=== PATIENT | male | born 1940 | race African-American/Black ===

== ENCOUNTER 2017-11-11 15:26 | Inpatient (IN) | payer MEDICARE, OTHER ==
[~2017-11-11 15:26] MED LIST: EPINEPHrine 0.1 MG/ML SYG
[2017-11-11] MEDS: SOD CHLORIDE 0.9% 1,000 ML IV ×5 (15:44→23:16)
[2017-11-11] MEDS: ASPIRIN 300 MG SUPP PR (15:45)
[2017-11-11 16:13] LABS: WHITE BLOOD COUNT 21.5 10^3/ul (4.8-10.8)
[2017-11-11 16:13] LABS: ABNORMAL IP MESSAGE 1; MEAN CORPUSCULAR HGB CONC 24.5 g/dl (32.0-37.0); MEAN PLATELET VOLUME 12.1 fl (7.4-10.4); PLATELET COUNT 448 10^3/UL (140-415); POSITIVE DIFF @See below; RED CELL DISTRIBUTION WIDTH 28.6 % (11.5-14.5)
[2017-11-11 16:19] LABS: AADO2 Arterial 613.9 mmHg (7.0-24.0); Allen Test ACCEPTAB; Arterial Blood Gas Oxygen Sat 59.7 mmHG (95.0-100.0); Arterial COHb 0.9 % (0.0-3.0); Arterial Fraction of Oxyhgb 58.9 % (93.0-99.0); Arterial MetHb 0.4 % (0.0-1.5); Arterial Total Hemglobin 3.2 g/dl (12.0-18.0); Arterial pCO2 57.5 mmhg (35-45); MODE VENT - AC; RED BLOOD COUNT 1.86 10^6/ul (4.70-6.10); Sample Type BLMV; Site Right Radial
[2017-11-11 16:21] LABS: ANION GAP 23 (8-16); BLOOD UREA NITROGEN 10 mg/dl (7-20); CALCIUM 8.7 mg/dl (8.4-10.2); CARBON DIOXIDE 27 mmol/L (21-31); CHLORIDE 97 mmol/L (97-110); CREATINE KINASE 267 IU/L (23-200); GLUCOSE 152 mg/dl (70-220); POTASSIUM 4.4 mmol/L (3.5-5.1); SODIUM 143 mmol/L (135-144)
[2017-11-11 16:22] LABS: ADD MAN DIFF? YES; HEMATOCRIT 14.7 % (42.0-52.0); HEMOGLOBIN 3.6 g/dl (14.0-18.0); MEAN CORPUSCULAR HEMOGLOBIN 19.4 pg (29.0-33.0)
[2017-11-11 16:31] LABS: B-TYPE NATRIURETIC PEPTIDE 1970 PG/ML (0-450)
[2017-11-11 16:32] LABS: CK INDEX 3.1
[2017-11-11 16:34] LABS: IMMEDIATE SPIN CROSSMATCH 1 4
[2017-11-11 16:45] LABS: CK-MB 8.38 ng/ml (0.0-2.4)
[2017-11-11] MEDS: NORepinephrine 8MG/250 ML (PMX 250 ML IV (16:51)
[2017-11-11 17:47] LABS: ANISOCYTOSIS 1+ (0-0); BAND NEUTROPHILS #M 0.2 10^3/ul (0.0-0.6); BAND NEUTROPHILS % (M) 1 % (0-4); ERYTHROBLAST% (NRBC) (M) 2 % (0-0); HYPOCHROMASIA 3+ (0-0); LYMPHOCYTES #M 4.3 10^3/ul (0.8-2.9); LYMPHOCYTES % (M) 20 % (15-51); MICROCYTOSIS 1+ (0-0); MONOCYTES % (M) 5 % (0-11); MYELOCYTES #M 0.2 10^3/ul (0.0-0.0); MYELOCYTES % (M) 1 % (0-0); OVALOCYTES 1+ (0-0); PLATELET ESTIMATE NORMAL; POIKILOCYTOSIS 1+ (0-0); POLYCHROMASIA 1+ (0-0); SEG NEUT #M 15.7 10^3/ul (1.7-7.5); SEGMENTED NEUTROPHILS (M) % 73 % (39-77)
[2017-11-11] MEDS: VANCOMYCIN 1 GM (PMX) 250 ML IVPB (19:00)
[2017-11-11] MEDS ORDERED: ALBUTEROL/IPRATROPIUM (NEB) 3 ML AMP NEB (19:00)
[2017-11-11] MEDS ORDERED: VANCOMYCIN IV PER PHARMACY XX (19:00)
[2017-11-11] MEDS ORDERED: ALBUTEROL/IPRATROPIUM (NEB) 3 ML AMP HHN ×2 (19:00→20:00)
[2017-11-11] MEDS ORDERED: HYDROCODONE/APAP (5/325) TAB PO (19:00)
[2017-11-11] MEDS ORDERED: ONDANSETRON 4 MG INJ IV (19:00)
[2017-11-11] MEDS: FAMOTIDINE 20 MG INJ IV (19:06)
[2017-11-11] MEDS: SOD CHLORIDE 0.9% 250 ML IV* (19:08)
[2017-11-11 19:11] LABS: TOTAL IRON BINDING CAPACITY 407 ug/dl (241-421)
[2017-11-11] MEDS: SODIUM CHLORIDE 0.9% 500 ML BAG IV* (19:12)
[2017-11-11 19:29] LABS: IRON < 10 ug/dl (35-150)
[2017-11-11] MEDS: MIDAZOLAM (DRIP) 50 mg/50 mL 50 ML IV (19:47)
[2017-11-11] MEDS: VECURONIUM 100 MG in DEXTROSE 5% 100 ML IV (19:49)
[2017-11-11 19:50] LABS: AMMONIA 13 umol/l (9-30)
[2017-11-11] MEDS: FENTAnyl 50 MCG/ML VIAL IV (19:53)
[2017-11-11 19:57] LABS: LACTIC ACID 3.4 mmol/L (0.5-2.0)
[2017-11-11 20:28] LABS: ALANINE AMINOTRANSFERASE 39 IU/L (13-69); ALBUMIN 3.2 g/dl (3.3-4.9); ALBUMIN/GLOBULIN RATIO 1.18; ALKALINE PHOSPHATASE 64 IU/L (42-121); ANION GAP 17 (8-16); ASPARTATE AMINO TRANSFERASE 63 IU/L (15-46); BILIRUBIN,INDIRECT 0.4 mg/dl (0-1.1); BILIRUBIN,TOTAL 0.4 mg/dl (0.2-1.3); BLOOD UREA NITROGEN 16 mg/dl (7-20); CARBON DIOXIDE 30 mmol/L (21-31); CHLORIDE 98 mmol/L (97-110); CREATININE 1.36 mg/dl (0.61-1.24); GLUCOSE 178 mg/dl (70-220); MAGNESIUM 2.1 mg/dl (1.7-2.5); PHOSPHORUS 4.7 mg/dl (2.5-4.9); POTASSIUM 4.2 mmol/L (3.5-5.1); SODIUM 141 mmol/L (135-144); TOTAL PROTEIN 5.9 g/dl (6.1-8.1)
[2017-11-11 20:28] LABS: LACTIC ACID 3.1 mmol/L (0.5-2.0)
[2017-11-11 20:32] LABS: AADO2 Arterial 439.4 mmHg (7.0-24.0); Arterial Base Excess 2.1 mmol/L (-3.0-3); Arterial Blood Gas Oxygen Sat 99.6 mmHG (95.0-100.0); Arterial COHb 0.6 % (0.0-3.0); Arterial Fraction of Oxyhgb 98.7 % (93.0-99.0); Arterial HCO3 27.2 mmol/L (22.0-26.0); Arterial MetHb 0.3 % (0.0-1.5); Arterial Total Hemglobin 6.9 g/dl (12.0-18.0); Arterial pCO2 45.3 mmhg (35-45); Blood Gas Mean Airway Pressure 11; MODE VENT - AC; Site LB
[2017-11-11] MEDS: CEFEPIME 2GM/50 ML (PMX) 50 ML IVPB (20:43)
[2017-11-11 20:49] LABS: B-TYPE NATRIURETIC PEPTIDE 2390 PG/ML (0-450)
[2017-11-11 20:57] LABS: ADD MAN DIFF? NO
[2017-11-11] MEDS: VANCOMYCIN 1.75 GM in DEXTROSE 5% 500 ML IVPB (21:00)
[2017-11-11 21:02] LABS: WHITE BLOOD COUNT 26.5 10^3/ul (4.8-10.8)
[2017-11-11 21:02] LABS: ABNORMAL IP MESSAGE 1; HEMATOCRIT 20.7 % (42.0-52.0); MEAN CORPUSCULAR HEMOGLOBIN 23.3 pg (29.0-33.0); MEAN CORPUSCULAR VOLUME 80.5 fl (82.0-101.0); MEAN PLATELET VOLUME 11.3 fl (7.4-10.4); NUCLEATED RED BLOOD CELLS% 1.3 /100WBC (0.0-0.0); PLATELET COUNT 430 10^3/UL (140-415); POSITIVE DIFF @See below; RED BLOOD COUNT 2.57 10^6/ul (4.70-6.10); RED CELL DISTRIBUTION WIDTH 23.9 % (11.5-14.5)
[2017-11-11 21:21] LABS: INR 1.12; PROTIME 14.6 Sec (11.9-14.9); PT RATIO 1.1
[2017-11-11 21:22] LABS: PARTIAL THROMBOPLASTIN TIME 33.2 Sec (25.0-35.0)
[2017-11-11 21:52] LABS: ANISOCYTOSIS 1+ (0-0); BAND NEUTROPHILS #M 0.7 10^3/ul (0.0-0.6); BAND NEUTROPHILS % (M) 3 % (0-4); GIANT THROMBO% (M) 2 % (0-0); HYPOCHROMASIA 3+ (0-0); LYMPHOCYTES #M 0.5 10^3/ul (0.8-2.9); LYMPHOCYTES % (M) 2 % (15-51); MONOCYTE #M 1.5 10^3/ul (0.3-0.9); MONOCYTES % (M) 6 % (0-11); OVALOCYTES 1+ (0-0); PLATELET ESTIMATE NORMAL; POIKILOCYTOSIS 1+ (0-0); POLYCHROMASIA 1+ (0-0); SEG NEUT #M 23.8 10^3/ul (1.7-7.5); SEGMENTED NEUTROPHILS (M) % 89 % (39-77)
[2017-11-11] MEDS: PANTOPRAZOLE IV 80 MG in SOD CHLORIDE 0.9% 100 ML IVPB (22:51)
[2017-11-11] MEDS: PANTOPRAZOLE IV 80 MG in SOD CHLORIDE 0.9% 100 ML IV (23:15)
[2017-11-12] MEDS ORDERED: DEXTROSE 50% 50 ML SYRINGE IV ×2
[2017-11-12] MEDS: SOD CHLORIDE 0.9% 1,000 ML IV ×5 (00:05→20:04)
[2017-11-12 00:31] LABS: AADO2 Arterial 319.7 mmHg (7.0-24.0); ADD MAN DIFF? NO; Allen Test ACCEPTAB; Arterial Base Excess 1.5 mmol/L (-3.0-3); Arterial Blood Gas Oxygen Sat 94.4 mmHG (95.0-100.0); Arterial COHb 0.4 % (0.0-3.0); Arterial Fraction of Oxyhgb 93.7 % (93.0-99.0); Arterial HCO3 27.6 mmol/L (22.0-26.0); Arterial MetHb 0.3 % (0.0-1.5); Arterial Total Hemglobin 6.7 g/dl (12.0-18.0); Arterial pCO2 45.5 mmhg (35-45); Blood Gas Low PEEP Setting 0 cmH2O; MODE VENT - AC; Site Right Radial; Temperature 33.6 C
[2017-11-12 00:38] LABS: ABNORMAL IP MESSAGE 1; BASOPHILS % 0.1 % (0.0-2.0); HEMATOCRIT 19.9 % (42.0-52.0); LYMPHOCYTES # 0.4 10^3/ul (0.8-2.9); LYMPHOCYTES % 1.7 % (15.0-51.0); MEAN CORPUSCULAR HEMOGLOBIN 23.6 pg (29.0-33.0); MEAN CORPUSCULAR HGB CONC 29.1 g/dl (32.0-37.0); MEAN CORPUSCULAR VOLUME 80.9 fl (82.0-101.0); MEAN PLATELET VOLUME 10.8 fl (7.4-10.4); MONOCYTE # 1.5 10^3/ul (0.3-0.9); MONOCYTES % 6.7 % (0.0-11.0); NEUTROPHIL # 19.8 10^3/ul (1.6-7.5); NEUTROPHILS % 90.9 % (39.0-77.0); NUCLEATED RED BLOOD CELLS # 0.1 10^3/ul (0.0-0.0); NUCLEATED RED BLOOD CELLS% 0.3 /100WBC (0.0-0.0); PLATELET COUNT 336 10^3/UL (140-415); POSITIVE DIFF @See below; RED BLOOD COUNT 2.46 10^6/ul (4.70-6.10); RED CELL DISTRIBUTION WIDTH 24.1 % (11.5-14.5)
[2017-11-12 00:38] LABS: WHITE BLOOD COUNT 21.8 10^3/ul (4.8-10.8)
[2017-11-12] MEDS: PIPER-TAZO 3.375 GM IV (PMX) 50 ML IVPB ×5 (00:54→23:14)
[2017-11-12 00:56] LABS: HEMOGLOBIN 5.8 g/dl (14.0-18.0); INR 1.21; PARTIAL THROMBOPLASTIN TIME 37.3 Sec (25.0-35.0); PROTIME 15.5 Sec (11.9-14.9); PT RATIO 1.2
[2017-11-12 01:03] LABS: ALANINE AMINOTRANSFERASE 46 IU/L (13-69); ALBUMIN/GLOBULIN RATIO 1.25; ALKALINE PHOSPHATASE 52 IU/L (42-121); AMYLASE 207 U/L (11-123); ANION GAP 12 (8-16); ASPARTATE AMINO TRANSFERASE 67 IU/L (15-46); BILIRUBIN,INDIRECT 0.4 mg/dl (0-1.1); BILIRUBIN,TOTAL 0.4 mg/dl (0.2-1.3); BLOOD UREA NITROGEN 16 mg/dl (7-20); CALCIUM 7.2 mg/dl (8.4-10.2); CARBON DIOXIDE 30 mmol/L (21-31); CHLORIDE 103 mmol/L (97-110); CREATINE KINASE 1128 IU/L (23-200); CREATININE 1.39 mg/dl (0.61-1.24); GLUCOSE 175 mg/dl (70-220); LIPASE 29 U/L (23-300); MAGNESIUM 1.9 mg/dl (1.7-2.5); PHOSPHORUS 3.5 mg/dl (2.5-4.9); SODIUM 141 mmol/L (135-144); TOTAL PROTEIN 5.4 g/dl (6.1-8.1)
[2017-11-12 01:10] LABS: LACTIC ACID 2.5 mmol/L (0.5-2.0)
[2017-11-12 01:13] LABS: CK INDEX 1.8
[2017-11-12] MEDS: ALBUTEROL/IPRATROPIUM (NEB) 3 ML AMP NEB ×2 (01:55→05:26)
[2017-11-12] MEDS: ACCU-CHEK XX ×24 (02:00→22:59)
[2017-11-12] MEDS: INSULIN HUMAN REGULAR 100 UNIT in SOD CHLORIDE 0.9% 99 ML IV (02:13)
[2017-11-12] MEDS: OCULAR LUBRICANT 3.5 GM OPH OINT BOTH EYES ×4 (02:25→18:02)
[2017-11-12] MEDS: ARTIFICIAL TEARS 15 ML OPH BOTH EYES ×5 (02:25→23:14)
[2017-11-12] MEDS: VECURONIUM 100 MG in DEXTROSE 5% 100 ML IV (04:50)
[2017-11-12] MEDS: PANTOPRAZOLE IV 80 MG in SOD CHLORIDE 0.9% 100 ML IV ×4 (05:00→19:44)
[2017-11-12] MEDS: FENTAnyl (DRIP) 1000 mcg/100mL 100 ML IV (05:51)
[2017-11-12] MEDS ORDERED: PANTOPRAZOLE 40 MG INJ IV (06:00)
[2017-11-12 06:13] LABS: Allen Test ACCEPTAB; Arterial Base Excess 0.3 mmol/L (-3.0-3); Arterial Blood Gas Oxygen Sat 98.2 mmHG (95.0-100.0); Arterial COHb 0 % (0.0-3.0); Arterial Fraction of Oxyhgb 97.9 % (93.0-99.0); Arterial MetHb 0.3 % (0.0-1.5); Arterial Total Hemglobin 9.1 g/dl (12.0-18.0); Arterial pCO2 41.9 mmhg (35-45); Blood Gas Low PEEP Setting 0 cmH2O; MODE VENT - AC; Site Right Radial; Temperature 34.3 C
[2017-11-12 07:18] LABS: ALANINE AMINOTRANSFERASE 45 IU/L (13-69); ALBUMIN 3.3 g/dl (3.3-4.9); ALBUMIN/GLOBULIN RATIO 1.32; ALKALINE PHOSPHATASE 49 IU/L (42-121); AMYLASE 295 U/L (11-123); ANION GAP 14 (8-16); ASPARTATE AMINO TRANSFERASE 86 IU/L (15-46); BILIRUBIN,INDIRECT 0.6 mg/dl (0-1.1); BILIRUBIN,TOTAL 0.6 mg/dl (0.2-1.3); BLOOD UREA NITROGEN 18 mg/dl (7-20); CALCIUM 7.5 mg/dl (8.4-10.2); CARBON DIOXIDE 30 mmol/L (21-31); CHLORIDE 104 mmol/L (97-110); CREATINE KINASE 1330 IU/L (23-200); CREATININE 1.52 mg/dl (0.61-1.24); GLUCOSE 112 mg/dl (70-220); LIPASE 21 U/L (23-300); MAGNESIUM 2.1 mg/dl (1.7-2.5); SODIUM 144 mmol/L (135-144); TOTAL PROTEIN 5.8 g/dl (6.1-8.1)
[2017-11-12 07:19] LABS: INR 1.15; PROTIME 14.9 Sec (11.9-14.9); PT RATIO 1.2
[2017-11-12 07:26] LABS: CK INDEX 1.9
[2017-11-12 07:34] LABS: AMMONIA < 9 umol/l (9-30)
[2017-11-12 07:35] LABS: LACTIC ACID 2.7 mmol/L (0.5-2.0)
[2017-11-12 07:37] LABS: CHOL/HDL RATIO 1.9 RATIO; CHOLESTEROL 72 mg/dl (100-200); CREATINE KINASE 1395 IU/L (23-200); HDL CHOLESTEROL 37 mg/dl (31-75); LDL CHOLESTEROL,CALCULATED 22 mg/dl; TRIGLYCERIDES 67 mg/dl (0-149)
[2017-11-12 07:37] LABS: MAGNESIUM 2.1 mg/dl (1.7-2.5)
[2017-11-12 07:55] LABS: FREE THYROXINE INDEX (Calc) 2.06 ug/ml (0.65-3.89); T3 UPTAKE 40.4 % (23.5-40.5); T4 (THYROXINE) 5.1 ug/dl (5.5-11.0)
[2017-11-12 08:09] LABS: THYROID STIMULATING HORMONE 0.696 MIU/L (0.465-4.680)
[2017-11-12 08:29] LABS: D-DIMER 4763.74 ng/ml (<460)
[2017-11-12] MEDS: IPRATROPIUM (HFA) 12.9 GM INHALER INH ×3 (08:48→19:32)
[2017-11-12] MEDS: ALBUTEROL HFA 8 GM INHALER INH ×3 (08:49→19:32)
[2017-11-12] MEDS: VANCOMYCIN 1.25 GM in SODIUM CHLORIDE 0.45 % 250 ML IVPB (09:43)
[2017-11-12 09:48] LABS: ABNORMAL IP MESSAGE 1; HEMATOCRIT 28.2 % (42.0-52.0); HEMOGLOBIN 8.5 g/dl (14.0-18.0); MEAN CORPUSCULAR HEMOGLOBIN 24.9 pg (29.0-33.0); MEAN CORPUSCULAR HGB CONC 30.1 g/dl (32.0-37.0); MEAN CORPUSCULAR VOLUME 82.5 fl (82.0-101.0); MEAN PLATELET VOLUME 11.5 fl (7.4-10.4); NUCLEATED RED BLOOD CELLS% 0.3 /100WBC (0.0-0.0); PLATELET COUNT 368 10^3/UL (140-415); POSITIVE DIFF @See below; RED BLOOD COUNT 3.42 10^6/ul (4.70-6.10); RED CELL DISTRIBUTION WIDTH 21.2 % (11.5-14.5)
[2017-11-12 09:48] LABS: HEMOGLOBIN A1C 5.3 % (0-5.9); WHITE BLOOD COUNT 21.9 10^3/ul (4.8-10.8)
[2017-11-12 09:54] LABS: ADD MAN DIFF? YES
[2017-11-12 10:58] LABS: ANISOCYTOSIS 1+ (0-0); BAND NEUTROPHILS #M 0.4 10^3/ul (0.0-0.6); BAND NEUTROPHILS % (M) 2 % (0-4); GIANT THROMBO% (M) 2 % (0-0); HYPOCHROMASIA 1+ (0-0); LYMPHOCYTES #M 0.6 10^3/ul (0.8-2.9); LYMPHOCYTES % (M) 3 % (15-51); MICROCYTOSIS 1+ (0-0); PLATELET ESTIMATE NORMAL; POIKILOCYTOSIS 1+ (0-0); POLYCHROMASIA 3+ (0-0); SEG NEUT #M 20.9 10^3/ul (1.7-7.5); SEGMENTED NEUTROPHILS (M) % 95 % (39-77)
[2017-11-12 12:46] LABS: AADO2 Arterial 325.6 mmHg (7.0-24.0); Allen Test ACCEPTAB; Arterial Base Excess 0.6 mmol/L (-3.0-3); Arterial Blood Gas Oxygen Sat 96.5 mmHG (95.0-100.0); Arterial COHb 0.3 % (0.0-3.0); Arterial Fraction of Oxyhgb 95.9 % (93.0-99.0); Arterial HCO3 26.1 mmol/L (22.0-26.0); Arterial MetHb 0.3 % (0.0-1.5); Arterial Total Hemglobin 9.6 g/dl (12.0-18.0); Arterial pCO2 37.7 mmhg (35-45); MODE VENT - AC; Site Right Radial; Temperature 32.5 C
[2017-11-12 12:56] LABS: WHITE BLOOD COUNT 21.4 10^3/ul (4.8-10.8)
[2017-11-12 12:56] LABS: ABNORMAL IP MESSAGE 1; HEMATOCRIT 27.4 % (42.0-52.0); HEMOGLOBIN 8.6 g/dl (14.0-18.0); MEAN CORPUSCULAR HEMOGLOBIN 25.2 pg (29.0-33.0); MEAN CORPUSCULAR HGB CONC 31.4 g/dl (32.0-37.0); MEAN CORPUSCULAR VOLUME 80.4 fl (82.0-101.0); MEAN PLATELET VOLUME 11.1 fl (7.4-10.4); NUCLEATED RED BLOOD CELLS% 0.1 /100WBC (0.0-0.0); PLATELET COUNT 355 10^3/UL (140-415); POSITIVE DIFF @See below; RED BLOOD COUNT 3.41 10^6/ul (4.70-6.10); RED CELL DISTRIBUTION WIDTH 21.2 % (11.5-14.5)
[2017-11-12 13:08] LABS: ADD MAN DIFF? YES
[2017-11-12 13:13] LABS: INR 1.11; PROTIME 14.5 Sec (11.9-14.9); PT RATIO 1.1
[2017-11-12 13:14] LABS: PARTIAL THROMBOPLASTIN TIME 40.7 Sec (25.0-35.0)
[2017-11-12 13:17] LABS: ALANINE AMINOTRANSFERASE 48 IU/L (13-69); ALBUMIN 3.2 g/dl (3.3-4.9); ALBUMIN/GLOBULIN RATIO 1.28; ALKALINE PHOSPHATASE 57 IU/L (42-121); AMYLASE 416 U/L (11-123); ANION GAP 12 (8-16); ASPARTATE AMINO TRANSFERASE 102 IU/L (15-46); BILIRUBIN,INDIRECT 0.5 mg/dl (0-1.1); BILIRUBIN,TOTAL 0.5 mg/dl (0.2-1.3); BLOOD UREA NITROGEN 19 mg/dl (7-20); CALCIUM 7.2 mg/dl (8.4-10.2); CARBON DIOXIDE 28 mmol/L (21-31); CHLORIDE 104 mmol/L (97-110); CREATINE KINASE 1297 IU/L (23-200); CREATININE 1.53 mg/dl (0.61-1.24); GLUCOSE 113 mg/dl (70-220); LIPASE 23 U/L (23-300); PHOSPHORUS 2.9 mg/dl (2.5-4.9); POTASSIUM 3.8 mmol/L (3.5-5.1); SODIUM 140 mmol/L (135-144); TOTAL PROTEIN 5.7 g/dl (6.1-8.1)
[2017-11-12 13:18] LABS: LACTIC ACID 2.4 mmol/L (0.5-2.0)
[2017-11-12 13:35] LABS: TROPONIN-I 0.718 ng/ml (0.00-0.12)
[2017-11-12 13:36] LABS: D-DIMER 3908.81 ng/ml (<460)
[2017-11-12 13:43] LABS: ANISOCYTOSIS 3+ (0-0); BAND NEUTROPHILS #M 1.7 10^3/ul (0.0-0.6); BAND NEUTROPHILS % (M) 8 % (0-4); GIANT THROMBO% (M) 1 % (0-0); HYPOCHROMASIA 2+ (0-0); MICROCYTOSIS 2+ (0-0); MONOCYTE #M 0.2 10^3/ul (0.3-0.9); MONOCYTES % (M) 1 % (0-11); PLATELET ESTIMATE NORMAL; POIKILOCYTOSIS 1+ (0-0); POLYCHROMASIA 3+ (0-0); SEG NEUT #M 19.8 10^3/ul (1.7-7.5); SEGMENTED NEUTROPHILS (M) % 91 % (39-77)
[2017-11-12] MEDS: MIDAZOLAM (DRIP) 50 mg/50 mL 50 ML IV (13:49)
[2017-11-12] MEDS: POTASSIUM CHLORIDE 50 ML IVPB (13:55)
[2017-11-12 17:52] LABS: ABNORMAL IP MESSAGE 1; HEMATOCRIT 27.1 % (42.0-52.0); HEMOGLOBIN 8.5 g/dl (14.0-18.0); MEAN CORPUSCULAR HEMOGLOBIN 25.1 pg (29.0-33.0); MEAN CORPUSCULAR HGB CONC 31.4 g/dl (32.0-37.0); MEAN CORPUSCULAR VOLUME 80.2 fl (82.0-101.0); MEAN PLATELET VOLUME 10.6 fl (7.4-10.4); NUCLEATED RED BLOOD CELLS% 0.2 /100WBC (0.0-0.0); PLATELET COUNT 325 10^3/UL (140-415); POSITIVE DIFF @See below; RED BLOOD COUNT 3.38 10^6/ul (4.70-6.10); RED CELL DISTRIBUTION WIDTH 21.2 % (11.5-14.5)
[2017-11-12 17:52] LABS: WHITE BLOOD COUNT 22.4 10^3/ul (4.8-10.8)
[2017-11-12 18:10] LABS: ALANINE AMINOTRANSFERASE 51 IU/L (13-69); ALBUMIN 3.2 g/dl (3.3-4.9); ALBUMIN/GLOBULIN RATIO 1.28; ALKALINE PHOSPHATASE 52 IU/L (42-121); AMYLASE 460 U/L (11-123); ANION GAP 12 (8-16); ASPARTATE AMINO TRANSFERASE 110 IU/L (15-46); BILIRUBIN,INDIRECT 0.6 mg/dl (0-1.1); BILIRUBIN,TOTAL 0.6 mg/dl (0.2-1.3); BLOOD UREA NITROGEN 20 mg/dl (7-20); CALCIUM 7.4 mg/dl (8.4-10.2); CARBON DIOXIDE 29 mmol/L (21-31); CHLORIDE 105 mmol/L (97-110); CREATINE KINASE 1190 IU/L (23-200); CREATININE 1.58 mg/dl (0.61-1.24); GLUCOSE 114 mg/dl (70-220); LIPASE 20 U/L (23-300); PHOSPHORUS 3.4 mg/dl (2.5-4.9); POTASSIUM 3.9 mmol/L (3.5-5.1); SODIUM 142 mmol/L (135-144); TOTAL PROTEIN 5.7 g/dl (6.1-8.1)
[2017-11-12 18:12] LABS: ADD MAN DIFF? YES
[2017-11-12 18:14] LABS: AADO2 Arterial 267.4 mmHg (7.0-24.0); Allen Test ACCEPTAB; Arterial Base Excess -1.1 mmol/L (-3.0-3); Arterial Blood Gas Oxygen Sat 94.7 mmHG (95.0-100.0); Arterial COHb 0.3 % (0.0-3.0); Arterial Fraction of Oxyhgb 94.1 % (93.0-99.0); Arterial HCO3 24.4 mmol/L (22.0-26.0); Arterial MetHb 0.3 % (0.0-1.5); Arterial Total Hemglobin 9.7 g/dl (12.0-18.0); Arterial pCO2 35.8 mmhg (35-45); INR 1.14; MODE VENT - AC; PARTIAL THROMBOPLASTIN TIME 44.1 Sec (25.0-35.0); PROTIME 14.8 Sec (11.9-14.9); PT RATIO 1.2; Site Right Radial
[2017-11-12 18:17] LABS: D-DIMER 3140.16 ng/ml (<460)
[2017-11-12 18:21] LABS: CK INDEX 2.1
[2017-11-12 18:31] LABS: TROPONIN-I 0.675 ng/ml (0.00-0.12)
[2017-11-12 19:09] LABS: ANISOCYTOSIS 2+ (0-0); BAND NEUTROPHILS #M 2.2 10^3/ul (0.0-0.6); BAND NEUTROPHILS % (M) 10 % (0-4); GIANT THROMBO% (M) 1 % (0-0); HYPOCHROMASIA 2+ (0-0); LYMPHOCYTES #M 0.2 10^3/ul (0.8-2.9); LYMPHOCYTES % (M) 1 % (15-51); METAMYELOCYTES #M 0.2 10^3/ul (0.0-0.0); METAMYELOCYTES %M 1 % (0-0); MICROCYTOSIS 1+ (0-0); MONOCYTE #M 1.3 10^3/ul (0.3-0.9); MONOCYTES % (M) 6 % (0-11); OVALOCYTES 1+ (0-0); PLATELET ESTIMATE NORMAL; POIKILOCYTOSIS 1+ (0-0); POLYCHROMASIA 3+ (0-0); REACTIVE LYMPHOCYTES #M 0.2 10^3/ul (0.0-0.0); REACTIVE LYMPHOCYTES% (M) 1 % (0-0); SEG NEUT #M 18.6 10^3/ul (1.7-7.5); SEGMENTED NEUTROPHILS (M) % 81 % (39-77); SMUDGE%M 1 % (0-0)
[2017-11-13] MEDS: ACCU-CHEK XX ×23 (00:05→22:00)
[2017-11-13] MEDS: SOD CHLORIDE 0.9% 1,000 ML IV ×3 (00:10→18:24)
[2017-11-13 00:17] LABS: AADO2 Arterial 310.2 mmHg (7.0-24.0); Allen Test ACCEPTAB; Arterial Base Excess -1.2 mmol/L (-3.0-3); Arterial Blood Gas Oxygen Sat 97.2 mmHG (95.0-100.0); Arterial COHb 0.3 % (0.0-3.0); Arterial Fraction of Oxyhgb 96.6 % (93.0-99.0); Arterial HCO3 24.2 mmol/L (22.0-26.0); Arterial MetHb 0.3 % (0.0-1.5); Arterial Total Hemglobin 9.5 g/dl (12.0-18.0); Arterial pCO2 36.6 mmhg (35-45); MODE VENT - AC; Site Right Radial
[2017-11-13 01:08] LABS: WHITE BLOOD COUNT 20.6 10^3/ul (4.8-10.8)
[2017-11-13 01:08] LABS: ABNORMAL IP MESSAGE 1; HEMATOCRIT 25.4 % (42.0-52.0); HEMOGLOBIN 7.8 g/dl (14.0-18.0); MEAN CORPUSCULAR HEMOGLOBIN 24.6 pg (29.0-33.0); MEAN CORPUSCULAR HGB CONC 30.7 g/dl (32.0-37.0); MEAN CORPUSCULAR VOLUME 80.1 fl (82.0-101.0); MEAN PLATELET VOLUME 11.7 fl (7.4-10.4); NUCLEATED RED BLOOD CELLS% 0.1 /100WBC (0.0-0.0); PLATELET COUNT 337 10^3/UL (140-415); POSITIVE DIFF @See below; RED BLOOD COUNT 3.17 10^6/ul (4.70-6.10); RED CELL DISTRIBUTION WIDTH 21.6 % (11.5-14.5)
[2017-11-13 01:20] LABS: ADD MAN DIFF? YES
[2017-11-13 01:27] LABS: INR 1.16; PT RATIO 1.2
[2017-11-13 01:28] LABS: PARTIAL THROMBOPLASTIN TIME 45.6 Sec (25.0-35.0)
[2017-11-13 01:29] LABS: ALANINE AMINOTRANSFERASE 44 IU/L (13-69); ALBUMIN 2.8 g/dl (3.3-4.9); ALBUMIN/GLOBULIN RATIO 1.16; ALKALINE PHOSPHATASE 46 IU/L (42-121); AMYLASE 437 U/L (11-123); ANION GAP 12 (8-16); ASPARTATE AMINO TRANSFERASE 111 IU/L (15-46); BILIRUBIN,INDIRECT 0.5 mg/dl (0-1.1); BILIRUBIN,TOTAL 0.5 mg/dl (0.2-1.3); BLOOD UREA NITROGEN 20 mg/dl (7-20); CALCIUM 7.1 mg/dl (8.4-10.2); CARBON DIOXIDE 28 mmol/L (21-31); CHLORIDE 106 mmol/L (97-110); CREATINE KINASE 915 IU/L (23-200); CREATININE 1.61 mg/dl (0.61-1.24); GLUCOSE 100 mg/dl (70-220); LIPASE 12 U/L (23-300); MAGNESIUM 1.9 mg/dl (1.7-2.5); PHOSPHORUS 3.6 mg/dl (2.5-4.9); POTASSIUM 3.8 mmol/L (3.5-5.1); SODIUM 142 mmol/L (135-144); TOTAL PROTEIN 5.2 g/dl (6.1-8.1)
[2017-11-13 01:30] LABS: LACTIC ACID 1.8 mmol/L (0.5-2.0)
[2017-11-13] MEDS: IPRATROPIUM (HFA) 12.9 GM INHALER INH ×4 (01:34→20:38)
[2017-11-13] MEDS: ALBUTEROL HFA 8 GM INHALER INH ×4 (01:34→20:38)
[2017-11-13 01:40] LABS: CK INDEX 2.3
[2017-11-13 01:48] LABS: ANISOCYTOSIS 2+ (0-0); BAND NEUTROPHILS #M 1.8 10^3/ul (0.0-0.6); BAND NEUTROPHILS % (M) 9 % (0-4); EOSINOPHILS % (M) 1 % (0-7); HYPOCHROMASIA 2+ (0-0); MICROCYTOSIS 2+ (0-0); MONOCYTE #M 0.2 10^3/ul (0.3-0.9); MONOCYTES % (M) 1 % (0-11); PLATELET ESTIMATE NORMAL; POIKILOCYTOSIS 1+ (0-0); POLYCHROMASIA 3+ (0-0); SEG NEUT #M 18.7 10^3/ul (1.7-7.5); SEGMENTED NEUTROPHILS (M) % 89 % (39-77)
[2017-11-13] MEDS: OCULAR LUBRICANT 3.5 GM OPH OINT BOTH EYES ×4 (01:58→19:01)
[2017-11-13] MEDS: FENTAnyl (DRIP) 1000 mcg/100mL 100 ML IV ×2 (02:24→21:39)
[2017-11-13] MEDS: NORepinephrine 8MG/250 ML (PMX 250 ML IV (02:53)
[2017-11-13] MEDS ORDERED: NORepinephrine 8MG/250 ML (PMX 250 ML IV (03:00)
[2017-11-13] MEDS: MIDAZOLAM (DRIP) 50 mg/50 mL 50 ML IV ×2 (03:24→21:39)
[2017-11-13] MEDS: PANTOPRAZOLE IV 80 MG in SOD CHLORIDE 0.9% 100 ML IV ×2 (05:08→19:57)
[2017-11-13] MEDS: ARTIFICIAL TEARS 15 ML OPH BOTH EYES ×4 (05:09→23:39)
[2017-11-13] MEDS: PIPER-TAZO 3.375 GM IV (PMX) 50 ML IVPB ×4 (05:09→23:41)
[2017-11-13] MEDS: VANCOMYCIN 1.5 GM in DEXTROSE 5% 500 ML IVPB (05:40)
[2017-11-13 06:17] LABS: AADO2 Arterial 293.3 mmHg (7.0-24.0); Allen Test ACCEPTAB; Arterial Base Excess -1.1 mmol/L (-3.0-3); Arterial Blood Gas Oxygen Sat 97.9 mmHG (95.0-100.0); Arterial COHb 0.3 % (0.0-3.0); Arterial Fraction of Oxyhgb 97.1 % (93.0-99.0); Arterial HCO3 23.2 mmol/L (22.0-26.0); Arterial MetHb 0.5 % (0.0-1.5); Arterial Total Hemglobin 8.5 g/dl (12.0-18.0); Arterial pCO2 32.6 mmhg (35-45); MODE VENT - AC; Site Right Radial; Temperature 34.2 C
[2017-11-13 06:28] LABS: WHITE BLOOD COUNT 19.9 10^3/ul (4.8-10.8)
[2017-11-13 06:28] LABS: ABNORMAL IP MESSAGE 1; HEMATOCRIT 24.3 % (42.0-52.0); HEMOGLOBIN 7.6 g/dl (14.0-18.0); MEAN CORPUSCULAR HGB CONC 31.3 g/dl (32.0-37.0); MEAN CORPUSCULAR VOLUME 79.9 fl (82.0-101.0); NUCLEATED RED BLOOD CELLS% 0.3 /100WBC (0.0-0.0); PLATELET COUNT 329 10^3/UL (140-415); POSITIVE DIFF @See below; RED BLOOD COUNT 3.04 10^6/ul (4.70-6.10); RED CELL DISTRIBUTION WIDTH 21.8 % (11.5-14.5)
[2017-11-13 06:33] LABS: ADD MAN DIFF? YES
[2017-11-13 06:48] LABS: INR 1.24; PROTIME 15.8 Sec (11.9-14.9); PT RATIO 1.2
[2017-11-13 06:50] LABS: PARTIAL THROMBOPLASTIN TIME 47.6 Sec (25.0-35.0)
[2017-11-13 06:52] LABS: D-DIMER 1513.94 ng/ml (<460)
[2017-11-13 08:42] LABS: LACTIC ACID 1.7 mmol/L (0.5-2.0)
[2017-11-13 09:11] LABS: ALANINE AMINOTRANSFERASE 40 IU/L (13-69); ALBUMIN 2.6 g/dl (3.3-4.9); ALKALINE PHOSPHATASE 45 IU/L (42-121); AMYLASE 403 U/L (11-123); ANION GAP 13 (8-16); ASPARTATE AMINO TRANSFERASE 112 IU/L (15-46); BILIRUBIN,INDIRECT 0.4 mg/dl (0-1.1); BILIRUBIN,TOTAL 0.4 mg/dl (0.2-1.3); BLOOD UREA NITROGEN 20 mg/dl (7-20); CARBON DIOXIDE 25 mmol/L (21-31); CHLORIDE 109 mmol/L (97-110); CREATINE KINASE 778 IU/L (23-200); CREATININE 1.69 mg/dl (0.61-1.24); GLUCOSE 99 mg/dl (70-220); MAGNESIUM 1.8 mg/dl (1.7-2.5); PHOSPHORUS 3.5 mg/dl (2.5-4.9); POTASSIUM 3.7 mmol/L (3.5-5.1); SODIUM 143 mmol/L (135-144); TOTAL PROTEIN 5.2 g/dl (6.1-8.1)
[2017-11-13 09:20] LABS: LIPASE < 10 U/L (23-300)
[2017-11-13 09:31] LABS: CK INDEX 2.3
[2017-11-13 09:33] LABS: ANISOCYTOSIS 2+ (0-0); BAND NEUTROPHILS #M 3.9 10^3/ul (0.0-0.6); BAND NEUTROPHILS % (M) 20 % (0-4); BURR CELLS 1+ (0-0); EOSINOPHILS % (M) 6 % (0-7); ERYTHROBLAST% (NRBC) (M) 1 % (0-0); HYPOCHROMASIA 2+ (0-0); MICROCYTOSIS 2+ (0-0); MONOCYTE #M 0.1 10^3/ul (0.3-0.9); MONOCYTES % (M) 1 % (0-11); PLATELET ESTIMATE NORMAL; POIKILOCYTOSIS 1+ (0-0); SEG NEUT #M 15.3 10^3/ul (1.7-7.5); SEGMENTED NEUTROPHILS (M) % 73 % (39-77)
[2017-11-13 13:15] LABS: AADO2 Arterial 312.1 mmHg (7.0-24.0); Allen Test ACCEPTAB; Arterial Base Excess 0.5 mmol/L (-3.0-3); Arterial Blood Gas Oxygen Sat 94.3 mmHG (95.0-100.0); Arterial COHb 0.3 % (0.0-3.0); Arterial Fraction of Oxyhgb 93.7 % (93.0-99.0); Arterial HCO3 25.9 mmol/L (22.0-26.0); Arterial MetHb 0.3 % (0.0-1.5); Arterial Total Hemglobin 8.9 g/dl (12.0-18.0); Arterial pCO2 43.4 mmhg (35-45); MODE VENT - AC; Site Right Radial; Temperature 35.9 C
[2017-11-13 14:13] LABS: ADD MAN DIFF? NO
[2017-11-13 14:16] LABS: ABNORMAL IP MESSAGE 1; BASOPHILS % 0.1 % (0.0-2.0); HEMOGLOBIN 7.9 g/dl (14.0-18.0); LYMPHOCYTES # 0.3 10^3/ul (0.8-2.9); LYMPHOCYTES % 1.4 % (15.0-51.0); MEAN CORPUSCULAR HEMOGLOBIN 25.2 pg (29.0-33.0); MEAN CORPUSCULAR HGB CONC 31.6 g/dl (32.0-37.0); MEAN CORPUSCULAR VOLUME 79.6 fl (82.0-101.0); MEAN PLATELET VOLUME 10.6 fl (7.4-10.4); MONOCYTE # 1.2 10^3/ul (0.3-0.9); MONOCYTES % 4.8 % (0.0-11.0); NEUTROPHIL # 22.8 10^3/ul (1.6-7.5); NEUTROPHILS % 93.2 % (39.0-77.0); NUCLEATED RED BLOOD CELLS # 0.1 10^3/ul (0.0-0.0); NUCLEATED RED BLOOD CELLS% 0.3 /100WBC (0.0-0.0); PLATELET COUNT 369 10^3/UL (140-415); POSITIVE DIFF @See below; RED BLOOD COUNT 3.14 10^6/ul (4.70-6.10); RED CELL DISTRIBUTION WIDTH 22.5 % (11.5-14.5)
[2017-11-13 14:16] LABS: WHITE BLOOD COUNT 24.4 10^3/ul (4.8-10.8)
[2017-11-13 14:40] LABS: INR 1.35; PROTIME 16.9 Sec (11.9-14.9); PT RATIO 1.3
[2017-11-13 14:42] LABS: PARTIAL THROMBOPLASTIN TIME 47.9 Sec (25.0-35.0)
[2017-11-13 14:44] LABS: D-DIMER 1348.19 ng/ml (<460)
[2017-11-13 14:47] LABS: ALANINE AMINOTRANSFERASE 47 IU/L (13-69); ALBUMIN 2.9 g/dl (3.3-4.9); ALBUMIN/GLOBULIN RATIO 1.11; ALKALINE PHOSPHATASE 49 IU/L (42-121); AMYLASE 330 U/L (11-123); ANION GAP 11 (8-16); ASPARTATE AMINO TRANSFERASE 122 IU/L (15-46); BILIRUBIN,INDIRECT 0.4 mg/dl (0-1.1); BILIRUBIN,TOTAL 0.4 mg/dl (0.2-1.3); BLOOD UREA NITROGEN 21 mg/dl (7-20); CARBON DIOXIDE 25 mmol/L (21-31); CHLORIDE 107 mmol/L (97-110); CREATINE KINASE 592 IU/L (23-200); CREATININE 1.79 mg/dl (0.61-1.24); GLUCOSE 103 mg/dl (70-220); LIPASE 15 U/L (23-300); MAGNESIUM 1.8 mg/dl (1.7-2.5); PHOSPHORUS 3.2 mg/dl (2.5-4.9); POTASSIUM 3.6 mmol/L (3.5-5.1); SODIUM 139 mmol/L (135-144); TOTAL PROTEIN 5.5 g/dl (6.1-8.1)
[2017-11-13 14:54] LABS: LACTIC ACID 1.2 mmol/L (0.5-2.0)
[2017-11-13 15:05] LABS: CK INDEX 2.1
[2017-11-13 15:07] LABS: TROPONIN-I 0.696 ng/ml (0.00-0.12)
[2017-11-13 18:12] LABS: ABNORMAL IP MESSAGE 1; HEMOGLOBIN 8.1 g/dl (14.0-18.0); MEAN CORPUSCULAR HEMOGLOBIN 24.9 pg (29.0-33.0); MEAN CORPUSCULAR HGB CONC 31.2 g/dl (32.0-37.0); MEAN PLATELET VOLUME 11.2 fl (7.4-10.4); NUCLEATED RED BLOOD CELLS% 0.3 /100WBC (0.0-0.0); PLATELET COUNT 399 10^3/UL (140-415); POSITIVE DIFF @See below; RED BLOOD COUNT 3.25 10^6/ul (4.70-6.10); RED CELL DISTRIBUTION WIDTH 22.7 % (11.5-14.5)
[2017-11-13 18:20] LABS: ADD MAN DIFF? YES
[2017-11-13 18:27] LABS: PROTIME 16.4 Sec (11.9-14.9); PT RATIO 1.3
[2017-11-13 18:28] LABS: PARTIAL THROMBOPLASTIN TIME 52.8 Sec (25.0-35.0)
[2017-11-13 18:30] LABS: D-DIMER 2098.25 ng/ml (<460)
[2017-11-13 18:34] LABS: LACTIC ACID 1.2 mmol/L (0.5-2.0)
[2017-11-13 18:37] LABS: ALANINE AMINOTRANSFERASE 46 IU/L (13-69); ALBUMIN 3.2 g/dl (3.3-4.9); ALBUMIN/GLOBULIN RATIO 1.23; ALKALINE PHOSPHATASE 52 IU/L (42-121); AMYLASE 296 U/L (11-123); ANION GAP 12 (8-16); ASPARTATE AMINO TRANSFERASE 121 IU/L (15-46); BILIRUBIN,INDIRECT 0.3 mg/dl (0-1.1); BILIRUBIN,TOTAL 0.3 mg/dl (0.2-1.3); BLOOD UREA NITROGEN 22 mg/dl (7-20); CALCIUM 6.8 mg/dl (8.4-10.2); CARBON DIOXIDE 26 mmol/L (21-31); CHLORIDE 108 mmol/L (97-110); CREATINE KINASE 549 IU/L (23-200); GLUCOSE 103 mg/dl (70-220); LIPASE 14 U/L (23-300); MAGNESIUM 1.8 mg/dl (1.7-2.5); PHOSPHORUS 3.8 mg/dl (2.5-4.9); POTASSIUM 3.9 mmol/L (3.5-5.1); SODIUM 142 mmol/L (135-144); TOTAL PROTEIN 5.8 g/dl (6.1-8.1)
[2017-11-13 18:47] LABS: CK INDEX 1.8
[2017-11-13 18:54] LABS: TROPONIN-I 0.814 ng/ml (0.00-0.12)
[2017-11-13 20:06] LABS: ANISOCYTOSIS 2+ (0-0); BAND NEUTROPHILS #M 0.2 10^3/ul (0.0-0.6); BAND NEUTROPHILS % (M) 1 % (0-4); GIANT THROMBO% (M) 7 % (0-0); HYPOCHROMASIA 1+ (0-0); LYMPHOCYTES #M 0.5 10^3/ul (0.8-2.9); LYMPHOCYTES % (M) 2 % (15-51); MICROCYTOSIS 2+ (0-0); MONOCYTE #M 0.7 10^3/ul (0.3-0.9); MONOCYTES % (M) 3 % (0-11); PLATELET MORPHOLOGY COMMENT @See below; POIKILOCYTOSIS 1+ (0-0); SEG NEUT #M 23.6 10^3/ul (1.7-7.5); SEGMENTED NEUTROPHILS (M) % 94 % (39-77); SMUDGE%M 3 % (0-0)
[2017-11-14] MEDS: OCULAR LUBRICANT 3.5 GM OPH OINT BOTH EYES ×4 (00:16→19:59)
[2017-11-14] MEDS: IPRATROPIUM (HFA) 12.9 GM INHALER INH ×4 (01:15→19:35)
[2017-11-14] MEDS: ALBUTEROL HFA 8 GM INHALER INH ×4 (01:15→19:35)
[2017-11-14] MEDS: PANTOPRAZOLE IV 80 MG in SOD CHLORIDE 0.9% 100 ML IV ×3 (03:39→16:57)
[2017-11-14] MEDS: SOD CHLORIDE 0.9% 1,000 ML IV ×4 (03:39→19:59)
[2017-11-14] MEDS: MIDAZOLAM (DRIP) 50 mg/50 mL 50 ML IV ×2 (04:02→18:41)
[2017-11-14] MEDS: PIPER-TAZO 3.375 GM IV (PMX) 50 ML IVPB ×3 (05:22→17:08)
[2017-11-14] MEDS: ARTIFICIAL TEARS 15 ML OPH BOTH EYES ×3 (05:22→17:09)
[2017-11-14 05:42] LABS: ADD MAN DIFF? NO
[2017-11-14] MEDS: VANCOMYCIN 1.5 GM in DEXTROSE 5% 500 ML IVPB (06:00)
[2017-11-14 06:11] LABS: ABNORMAL IP MESSAGE 1; BASOPHILS % 0.2 % (0.0-2.0); EOSINOPHILS % 0.2 % (0.0-7.0); HEMATOCRIT 25.8 % (42.0-52.0); HEMOGLOBIN 7.8 g/dl (14.0-18.0); LYMPHOCYTES # 0.4 10^3/ul (0.8-2.9); LYMPHOCYTES % 1.7 % (15.0-51.0); MEAN CORPUSCULAR HEMOGLOBIN 24.9 pg (29.0-33.0); MEAN CORPUSCULAR HGB CONC 30.2 g/dl (32.0-37.0); MEAN CORPUSCULAR VOLUME 82.4 fl (82.0-101.0); MEAN PLATELET VOLUME 11.4 fl (7.4-10.4); MONOCYTE # 1.6 10^3/ul (0.3-0.9); MONOCYTES % 6.6 % (0.0-11.0); NEUTROPHIL # 22.3 10^3/ul (1.6-7.5); NEUTROPHILS % 90.4 % (39.0-77.0); NUCLEATED RED BLOOD CELLS # 0.1 10^3/ul (0.0-0.0); NUCLEATED RED BLOOD CELLS% 0.4 /100WBC (0.0-0.0); PLATELET COUNT 423 10^3/UL (140-415); POSITIVE DIFF @See below; RED BLOOD COUNT 3.13 10^6/ul (4.70-6.10); RED CELL DISTRIBUTION WIDTH 23.7 % (11.5-14.5)
[2017-11-14 06:11] LABS: WHITE BLOOD COUNT 24.7 10^3/ul (4.8-10.8)
[2017-11-14 06:20] LABS: ALANINE AMINOTRANSFERASE 41 IU/L (13-69); ALBUMIN 2.6 g/dl (3.3-4.9); ALBUMIN/GLOBULIN RATIO 1.13; ALKALINE PHOSPHATASE 49 IU/L (42-121); ANION GAP 12 (8-16); ASPARTATE AMINO TRANSFERASE 109 IU/L (15-46); BILIRUBIN,INDIRECT 0.3 mg/dl (0-1.1); BILIRUBIN,TOTAL 0.3 mg/dl (0.2-1.3); BLOOD UREA NITROGEN 23 mg/dl (7-20); CALCIUM 7.1 mg/dl (8.4-10.2); CARBON DIOXIDE 27 mmol/L (21-31); CHLORIDE 109 mmol/L (97-110); CREATININE 2.07 mg/dl (0.61-1.24); GLUCOSE 81 mg/dl (70-220); MAGNESIUM 1.8 mg/dl (1.7-2.5); PHOSPHORUS 4.4 mg/dl (2.5-4.9); POTASSIUM 4.3 mmol/L (3.5-5.1); SODIUM 144 mmol/L (135-144); TOTAL PROTEIN 4.9 g/dl (6.1-8.1)
[2017-11-14] MEDS: FENTAnyl (DRIP) 1000 mcg/100mL 100 ML IV ×2 (06:21→22:38)
[2017-11-14 06:42] LABS: AMMONIA 12 umol/l (9-30)
[2017-11-14] MEDS ORDERED: VANCOMYCIN 1.25 GM in SODIUM CHLORIDE 0.45 % 250 ML IVPB (09:00)
[2017-11-14] MEDS: METOPROLOL 25 MG TAB NGT ×2 (09:00→19:59)
[2017-11-14 12:33] LABS: ADD UMIC YES; UR ASCORBIC ACID NEGATIVE (NEGATIVE); UR BACTERIA FEW /HPF (NONE SEEN); UR BILIRUBIN (Dip) NEGATIVE (NEGATIVE); UR BLOOD (Dip) 1+ mg/dL (NEGATIVE); UR CLARITY TURBID (CLEAR); UR COLOR YELLOW (YELLOW); UR GLUCOSE (Dip) NEGATIVE (NEGATIVE); UR GRANULAR CAST FEW /HPF (NONE SEEN); UR KETONES (Dip) NEGATIVE (NEGATIVE); UR LEUKOCYTE ESTERASE (Dip) 1+ Leu/ul (NEGATIVE); UR MUCUS FEW /HPF (NONE SEEN); UR NITRITE (Dip) NEGATIVE (NEGATIVE); UR RBC 17 /HPF (0-5); UR SPECIFIC GRAVITY (Dip) 1.023 (1.003-1.030); UR TOTAL PROTEIN (Dip) NEGATIVE (NEGATIVE); UR UROBILINOGEN (Dip) NEGATIVE (NEGATIVE); UR WBC 38 /HPF (0-5)
[2017-11-14] MEDS: VANCOMYCIN 1 GM 250 ML IVPB (19:59)
[2017-11-15] MEDS: PIPER-TAZO 3.375 GM IV (PMX) 50 ML IVPB ×4 (00:24→21:46)
[2017-11-15] MEDS: ARTIFICIAL TEARS 15 ML OPH BOTH EYES ×5 (00:24→23:17)
[2017-11-15] MEDS: OCULAR LUBRICANT 3.5 GM OPH OINT BOTH EYES ×4 (00:25→20:14)
[2017-11-15] MEDS: IPRATROPIUM (HFA) 12.9 GM INHALER INH ×4 (01:27→20:29)
[2017-11-15] MEDS: ALBUTEROL HFA 8 GM INHALER INH ×4 (01:27→20:29)
[2017-11-15] MEDS: PANTOPRAZOLE IV 80 MG in SOD CHLORIDE 0.9% 100 ML IV (03:52)
[2017-11-15] MEDS: MIDAZOLAM (DRIP) 50 mg/50 mL 50 ML IV (03:53)
[2017-11-15] MEDS: FENTAnyl (DRIP) 1000 mcg/100mL 100 ML IV (04:04)
[2017-11-15 05:49] LABS: ADD MAN DIFF? NO
[2017-11-15 05:58] LABS: WHITE BLOOD COUNT 21.7 10^3/ul (4.8-10.8)
[2017-11-15 05:58] LABS: ABNORMAL IP MESSAGE 1; BASOPHILS % 0.2 % (0.0-2.0); EOSINOPHILS # 0.1 10^3/ul (0.0-0.5); EOSINOPHILS % 0.3 % (0.0-7.0); HEMATOCRIT 24.2 % (42.0-52.0); HEMOGLOBIN 7.1 g/dl (14.0-18.0); LYMPHOCYTES # 0.5 10^3/ul (0.8-2.9); LYMPHOCYTES % 2.1 % (15.0-51.0); MEAN CORPUSCULAR HEMOGLOBIN 24.7 pg (29.0-33.0); MEAN CORPUSCULAR HGB CONC 29.3 g/dl (32.0-37.0); MEAN CORPUSCULAR VOLUME 84.3 fl (82.0-101.0); MEAN PLATELET VOLUME 11.2 fl (7.4-10.4); MONOCYTE # 1.2 10^3/ul (0.3-0.9); MONOCYTES % 5.4 % (0.0-11.0); NEUTROPHIL # 19.8 10^3/ul (1.6-7.5); NEUTROPHILS % 91.2 % (39.0-77.0); NUCLEATED RED BLOOD CELLS # 0.1 10^3/ul (0.0-0.0); NUCLEATED RED BLOOD CELLS% 0.4 /100WBC (0.0-0.0); PLATELET COUNT 463 10^3/UL (140-415); POSITIVE DIFF @See below; RED BLOOD COUNT 2.87 10^6/ul (4.70-6.10); RED CELL DISTRIBUTION WIDTH 23.7 % (11.5-14.5)
[2017-11-15 06:30] LABS: ANION GAP 13 (8-16); BLOOD UREA NITROGEN 26 mg/dl (7-20); CALCIUM 7.3 mg/dl (8.4-10.2); CARBON DIOXIDE 27 mmol/L (21-31); CHLORIDE 111 mmol/L (97-110); CREATININE 2.41 mg/dl (0.61-1.24); GLUCOSE 89 mg/dl (70-220); SODIUM 147 mmol/L (135-144)
[2017-11-15 06:31] LABS: IRON < 10 ug/dl (35-150)
[2017-11-15 06:32] LABS: TOTAL IRON BINDING CAPACITY 273 ug/dl (241-421)
[2017-11-15] MEDS: METOPROLOL 25 MG TAB NGT ×2 (09:00→20:14)
[2017-11-15 09:19] LABS: HEMATOCRIT 24.1 % (42.0-52.0); HEMOGLOBIN 7.2 g/dl (14.0-18.0)
[2017-11-15] MEDS: BUMETANIDE 12 MG in DEXTROSE 5% 72 ML IV ×2 (10:25→23:17)
[2017-11-15 10:56] LABS: IMMEDIATE SPIN CROSSMATCH 1 1
[2017-11-15 16:05] LABS: HEMATOCRIT 29.6 % (42.0-52.0)
[2017-11-15] MEDS ORDERED: EPOETIN 10000 UNITS/ML (NON ESRD/NON ONCOLOGY) SC (17:00)
[2017-11-15] MEDS: EPOETIN 10000 UNITS/ML (NON ESRD/NON ONCOLOGY) SC (17:49)
[2017-11-15] MEDS: SOD FERRIC GLUC COMPLX 125 MG in SOD CHLORIDE 0.9% 100 ML IVPB (18:23)
[2017-11-15] MEDS: PANTOPRAZOLE 40 MG INJ IV (18:23)
[2017-11-16] MEDS: OCULAR LUBRICANT 3.5 GM OPH OINT BOTH EYES ×4 (01:22→19:19)
[2017-11-16] MEDS ORDERED: hydrALAzine 20 MG INJ IV (01:30)
[2017-11-16] MEDS: IPRATROPIUM (HFA) 12.9 GM INHALER INH ×4 (01:56→20:42)
[2017-11-16] MEDS: ALBUTEROL HFA 8 GM INHALER INH ×4 (01:56→20:42)
[2017-11-16] MEDS: PIPER-TAZO 3.375 GM IV (PMX) 50 ML IVPB ×3 (05:09→21:47)
[2017-11-16] MEDS: PANTOPRAZOLE 40 MG INJ IV ×2 (05:10→17:32)
[2017-11-16] MEDS: ARTIFICIAL TEARS 15 ML OPH BOTH EYES ×3 (05:10→17:33)
[2017-11-16] MEDS: LORAZEPAM 2 MG INJ IV (05:32)
[2017-11-16 05:35] LABS: ABNORMAL IP MESSAGE 1; HEMATOCRIT 29.9 % (42.0-52.0); HEMOGLOBIN 9.2 g/dl (14.0-18.0); MEAN CORPUSCULAR HEMOGLOBIN 25.5 pg (29.0-33.0); MEAN CORPUSCULAR HGB CONC 30.8 g/dl (32.0-37.0); MEAN CORPUSCULAR VOLUME 82.8 fl (82.0-101.0); MEAN PLATELET VOLUME 11.6 fl (7.4-10.4); NUCLEATED RED BLOOD CELLS% 0.8 /100WBC (0.0-0.0); PLATELET COUNT 684 10^3/UL (140-415); POSITIVE DIFF @See below; RED BLOOD COUNT 3.61 10^6/ul (4.70-6.10); RED CELL DISTRIBUTION WIDTH 23.2 % (11.5-14.5)
[2017-11-16 05:57] LABS: ADD MAN DIFF? YES
[2017-11-16 06:04] LABS: ANION GAP 17 (8-16); BLOOD UREA NITROGEN 42 mg/dl (7-20); CALCIUM 8.4 mg/dl (8.4-10.2); CARBON DIOXIDE 27 mmol/L (21-31); CHLORIDE 109 mmol/L (97-110); CREATININE 3.42 mg/dl (0.61-1.24); GLUCOSE 141 mg/dl (70-220); SODIUM 149 mmol/L (135-144)
[2017-11-16 06:13] LABS: PHOSPHORUS 4.2 mg/dl (2.5-4.9)
[2017-11-16 06:13] LABS: MAGNESIUM 2.5 mg/dl (1.7-2.5)
[2017-11-16 06:35] LABS: VANCOMYCIN,RANDOM 17.2 ug/ml
[2017-11-16 07:37] LABS: ANISOCYTOSIS 2+ (0-0); BAND NEUTROPHILS #M 0.8 10^3/ul (0.0-0.6); BAND NEUTROPHILS % (M) 3 % (0-4); GIANT THROMBO% (M) 2 % (0-0); HYPOCHROMASIA 1+ (0-0); LYMPHOCYTES #M 0.2 10^3/ul (0.8-2.9); LYMPHOCYTES % (M) 1 % (15-51); MICROCYTOSIS 2+ (0-0); MONOCYTE #M 1.7 10^3/ul (0.3-0.9); MONOCYTES % (M) 6 % (0-11); PLATELET ESTIMATE INCREASED; POIKILOCYTOSIS 1+ (0-0); POLYCHROMASIA 1+ (0-0); SEG NEUT #M 26.3 10^3/ul (1.7-7.5); SEGMENTED NEUTROPHILS (M) % 90 % (39-77); SPHEROCYTES 1+ (0-0); TARGET CELLS 1+ (0-0)
[2017-11-16] MEDS: METOPROLOL 25 MG TAB NGT ×2 (09:05→21:47)
[2017-11-16] MEDS: DEXTROSE 5% 1,000 ML IV ×2 (09:52→19:19)
[2017-11-16] MEDS: SOD FERRIC GLUC COMPLX 125 MG in SOD CHLORIDE 0.9% 100 ML IVPB (10:43)
[2017-11-16] MEDS: VANCOMYCIN 1 GM 250 ML IVPB (21:46)
[2017-11-17] MEDS: ARTIFICIAL TEARS 15 ML OPH BOTH EYES ×4 (00:23→17:43)
[2017-11-17] MEDS: OCULAR LUBRICANT 3.5 GM OPH OINT BOTH EYES ×4 (00:23→19:37)
[2017-11-17] MEDS: IPRATROPIUM (HFA) 12.9 GM INHALER INH ×4 (02:57→19:53)
[2017-11-17] MEDS: ALBUTEROL HFA 8 GM INHALER INH ×4 (02:57→19:53)
[2017-11-17 05:53] LABS: ABNORMAL IP MESSAGE 1; HEMATOCRIT 29.3 % (42.0-52.0); HEMOGLOBIN 8.8 g/dl (14.0-18.0); MEAN CORPUSCULAR HEMOGLOBIN 25.3 pg (29.0-33.0); MEAN CORPUSCULAR VOLUME 84.2 fl (82.0-101.0); MEAN PLATELET VOLUME 11.2 fl (7.4-10.4); NUCLEATED RED BLOOD CELLS% 1.4 /100WBC (0.0-0.0); PLATELET COUNT 709 10^3/UL (140-415); POSITIVE DIFF @See below; RED BLOOD COUNT 3.48 10^6/ul (4.70-6.10); RED CELL DISTRIBUTION WIDTH 23.9 % (11.5-14.5)
[2017-11-17 05:53] LABS: WHITE BLOOD COUNT 31.5 10^3/ul (4.8-10.8)
[2017-11-17] MEDS: PIPER-TAZO 3.375 GM IV (PMX) 50 ML IVPB ×3 (06:05→22:44)
[2017-11-17] MEDS: DEXTROSE 5% 1,000 ML IV ×3 (06:05→19:37)
[2017-11-17] MEDS: PANTOPRAZOLE 40 MG INJ IV ×2 (06:05→17:46)
[2017-11-17 06:25] LABS: ANION GAP 16 (8-16); BLOOD UREA NITROGEN 56 mg/dl (7-20); CALCIUM 8.7 mg/dl (8.4-10.2); CARBON DIOXIDE 27 mmol/L (21-31); CHLORIDE 105 mmol/L (97-110); CREATININE 4.84 mg/dl (0.61-1.24); GLUCOSE 145 mg/dl (70-220); POTASSIUM 4.3 mmol/L (3.5-5.1); SODIUM 144 mmol/L (135-144)
[2017-11-17 07:16] LABS: ADD MAN DIFF? YES
[2017-11-17] MEDS: METOPROLOL 25 MG TAB NGT ×2 (08:51→20:56)
[2017-11-17] MEDS: ALBUMIN HUMAN 25% 100 ML IV (10:00)
[2017-11-17] MEDS: SOD CHLORIDE 0.9% 100 ML (11:30)
[2017-11-17] MEDS: SOD CHLORIDE 0.9% 500 ML IV (11:30)
[2017-11-17] MEDS: SOD FERRIC GLUC COMPLX 125 MG in SOD CHLORIDE 0.9% 100 ML IVPB (11:35)
[2017-11-17] MEDS: LIDOCAINE 1% (MPF) 5 ML VIAL SC (12:05)
[2017-11-17 12:14] LABS: ANISOCYTOSIS 2+ (0-0); BAND NEUTROPHILS #M 0.6 10^3/ul (0.0-0.6); BAND NEUTROPHILS % (M) 2 % (0-4); EOSINOPHILS % (M) 1 % (0-7); ERYTHROBLAST% (NRBC) (M) 1 % (0-0); GIANT THROMBO% (M) 1 % (0-0); HYPOCHROMASIA 1+ (0-0); MICROCYTOSIS 1+ (0-0); MONOCYTE #M 1.5 10^3/ul (0.3-0.9); MONOCYTES % (M) 5 % (0-11); OVALOCYTES 1+ (0-0); PLATELET ESTIMATE INCREASED; PLATELET MORPHOLOGY COMMENT @See below; POIKILOCYTOSIS 1+ (0-0); POLYCHROMASIA 3+ (0-0); SEG NEUT #M 29.2 10^3/ul (1.7-7.5); SEGMENTED NEUTROPHILS (M) % 92 % (39-77); SMUDGE%M 2 % (0-0)
[2017-11-17] MEDS: FUROSEMIDE 40 MG INJ IV (13:29)
[2017-11-17] MEDS: EPOETIN 10000 UNITS/ML (NON ESRD/NON ONCOLOGY) SC (17:43)
[2017-11-18] MEDS: ARTIFICIAL TEARS 15 ML OPH BOTH EYES ×5 (00:06→23:25)
[2017-11-18] MEDS: OCULAR LUBRICANT 3.5 GM OPH OINT BOTH EYES ×4 (00:06→20:12)
[2017-11-18] MEDS: IPRATROPIUM (HFA) 12.9 GM INHALER INH ×4 (01:24→19:24)
[2017-11-18] MEDS: ALBUTEROL HFA 8 GM INHALER INH ×4 (01:25→19:24)
[2017-11-18] MEDS: DEXTROSE 5% 1,000 ML IV ×2 (01:34→14:36)
[2017-11-18 05:33] LABS: ADD MAN DIFF? NO
[2017-11-18] MEDS: PIPER-TAZO 3.375 GM IV (PMX) 50 ML IVPB ×2 (05:33→14:34)
[2017-11-18] MEDS: PANTOPRAZOLE 40 MG INJ IV ×2 (05:33→17:22)
[2017-11-18 05:38] LABS: ABNORMAL IP MESSAGE 1; BASOPHIL # 0.1 10^3/ul (0.0-0.1); BASOPHILS % 0.4 % (0.0-2.0); EOSINOPHILS # 0.6 10^3/ul (0.0-0.5); EOSINOPHILS % 2.4 % (0.0-7.0); HEMATOCRIT 26.8 % (42.0-52.0); HEMOGLOBIN 8.1 g/dl (14.0-18.0); LYMPHOCYTES # 0.5 10^3/ul (0.8-2.9); MEAN CORPUSCULAR HEMOGLOBIN 25.4 pg (29.0-33.0); MEAN CORPUSCULAR HGB CONC 30.2 g/dl (32.0-37.0); MEAN PLATELET VOLUME 11.2 fl (7.4-10.4); MONOCYTE # 2.4 10^3/ul (0.3-0.9); MONOCYTES % 9.6 % (0.0-11.0); NEUTROPHIL # 20.6 10^3/ul (1.6-7.5); NEUTROPHILS % 83.5 % (39.0-77.0); NUCLEATED RED BLOOD CELLS # 0.4 10^3/ul (0.0-0.0); NUCLEATED RED BLOOD CELLS% 1.8 /100WBC (0.0-0.0); PLATELET COUNT 643 10^3/UL (140-415); POSITIVE DIFF @See below; RED BLOOD COUNT 3.19 10^6/ul (4.70-6.10); RED CELL DISTRIBUTION WIDTH 23.8 % (11.5-14.5)
[2017-11-18 05:38] LABS: WHITE BLOOD COUNT 24.6 10^3/ul (4.8-10.8)
[2017-11-18] MEDS ORDERED: PANTOPRAZOLE 40 MG INJ IV (06:00)
[2017-11-18 06:16] LABS: ALANINE AMINOTRANSFERASE 32 IU/L (13-69); ALBUMIN 3.3 g/dl (3.3-4.9); ALBUMIN/GLOBULIN RATIO 1.17; ALKALINE PHOSPHATASE 54 IU/L (42-121); ANION GAP 17 (8-16); ASPARTATE AMINO TRANSFERASE 59 IU/L (15-46); BILIRUBIN,INDIRECT 0.1 mg/dl (0-1.1); BILIRUBIN,TOTAL 0.1 mg/dl (0.2-1.3); BLOOD UREA NITROGEN 67 mg/dl (7-20); CALCIUM 8.6 mg/dl (8.4-10.2); CARBON DIOXIDE 23 mmol/L (21-31); CHLORIDE 102 mmol/L (97-110); CREATININE 5.65 mg/dl (0.61-1.24); GLUCOSE 111 mg/dl (70-220); SODIUM 138 mmol/L (135-144); TOTAL PROTEIN 6.1 g/dl (6.1-8.1)
[2017-11-18] MEDS: METOPROLOL 25 MG TAB NGT ×2 (08:39→20:48)
[2017-11-18] MEDS: SOD FERRIC GLUC COMPLX 125 MG in SOD CHLORIDE 0.9% 100 ML IVPB (10:38)
[2017-11-18] MEDS: BUMETANIDE 12 MG in DEXTROSE 5% 72 ML IV (10:38)
[2017-11-18] MEDS: PIPER-TAZO 2.25 GM (PMX) 50 ML IVPB (22:00)
[2017-11-19] MEDS: ALBUTEROL HFA 8 GM INHALER INH ×4 (01:10→19:35)
[2017-11-19] MEDS: IPRATROPIUM (HFA) 12.9 GM INHALER INH ×4 (01:10→19:34)
[2017-11-19] MEDS: OCULAR LUBRICANT 3.5 GM OPH OINT BOTH EYES ×4 (01:45→19:23)
[2017-11-19] MEDS: DEXTROSE 5% 1,000 ML IV (01:48)
[2017-11-19 05:03] LABS: ADD MAN DIFF? NO
[2017-11-19 05:11] LABS: WHITE BLOOD COUNT 25.1 10^3/ul (4.8-10.8)
[2017-11-19 05:11] LABS: ABNORMAL IP MESSAGE 1; BASOPHIL # 0.1 10^3/ul (0.0-0.1); BASOPHILS % 0.4 % (0.0-2.0); EOSINOPHILS # 0.7 10^3/ul (0.0-0.5); EOSINOPHILS % 2.6 % (0.0-7.0); HEMATOCRIT 26.8 % (42.0-52.0); HEMOGLOBIN 8.3 g/dl (14.0-18.0); LYMPHOCYTES # 0.6 10^3/ul (0.8-2.9); LYMPHOCYTES % 2.5 % (15.0-51.0); MEAN CORPUSCULAR HEMOGLOBIN 26.1 pg (29.0-33.0); MEAN CORPUSCULAR VOLUME 84.3 fl (82.0-101.0); MEAN PLATELET VOLUME 10.9 fl (7.4-10.4); MONOCYTE # 2.2 10^3/ul (0.3-0.9); MONOCYTES % 8.7 % (0.0-11.0); NEUTROPHIL # 20.7 10^3/ul (1.6-7.5); NEUTROPHILS % 82.6 % (39.0-77.0); NUCLEATED RED BLOOD CELLS # 0.6 10^3/ul (0.0-0.0); NUCLEATED RED BLOOD CELLS% 2.3 /100WBC (0.0-0.0); PLATELET COUNT 666 10^3/UL (140-415); POSITIVE DIFF @See below; RED BLOOD COUNT 3.18 10^6/ul (4.70-6.10); RED CELL DISTRIBUTION WIDTH 23.9 % (11.5-14.5)
[2017-11-19 05:46] LABS: VANCOMYCIN,RANDOM 20.7 ug/ml
[2017-11-19 05:46] LABS: ALANINE AMINOTRANSFERASE 31 IU/L (13-69); ALBUMIN 3.3 g/dl (3.3-4.9); ALBUMIN/GLOBULIN RATIO 1.17; ALKALINE PHOSPHATASE 52 IU/L (42-121); ANION GAP 19 (8-16); ASPARTATE AMINO TRANSFERASE 62 IU/L (15-46); BLOOD UREA NITROGEN 74 mg/dl (7-20); CALCIUM 8.4 mg/dl (8.4-10.2); CARBON DIOXIDE 22 mmol/L (21-31); CHLORIDE 99 mmol/L (97-110); CREATININE 6.58 mg/dl (0.61-1.24); GLUCOSE 122 mg/dl (70-220); POTASSIUM 4.1 mmol/L (3.5-5.1); SODIUM 136 mmol/L (135-144); TOTAL PROTEIN 6.1 g/dl (6.1-8.1)
[2017-11-19] MEDS: PIPER-TAZO 2.25 GM (PMX) 50 ML IVPB ×3 (06:22→21:46)
[2017-11-19] MEDS: PANTOPRAZOLE 40 MG INJ IV ×2 (06:22→17:20)
[2017-11-19] MEDS: ARTIFICIAL TEARS 15 ML OPH BOTH EYES ×3 (06:23→17:20)
[2017-11-19] MEDS: METOPROLOL 25 MG TAB NGT ×2 (08:41→21:45)
[2017-11-19] MEDS ORDERED: DEXTROSE 5%-0.45% NACL 500 ML IV (09:00)
[2017-11-19] MEDS: SOD FERRIC GLUC COMPLX 125 MG in SOD CHLORIDE 0.9% 100 ML IVPB (11:11)
[2017-11-19] MEDS: BUMETANIDE 12 MG in DEXTROSE 5% 72 ML IV (11:11)
[2017-11-19 13:48] LABS: ADD MAN DIFF? NO
[2017-11-19 13:50] LABS: ABNORMAL IP MESSAGE 1; BASOPHIL # 0.1 10^3/ul (0.0-0.1); BASOPHILS % 0.2 % (0.0-2.0); EOSINOPHILS # 0.6 10^3/ul (0.0-0.5); EOSINOPHILS % 2.5 % (0.0-7.0); HEMOGLOBIN 7.6 g/dl (14.0-18.0); LYMPHOCYTES # 0.7 10^3/ul (0.8-2.9); LYMPHOCYTES % 2.9 % (15.0-51.0); MEAN CORPUSCULAR HEMOGLOBIN 25.4 pg (29.0-33.0); MEAN CORPUSCULAR HGB CONC 30.4 g/dl (32.0-37.0); MEAN CORPUSCULAR VOLUME 83.6 fl (82.0-101.0); MEAN PLATELET VOLUME 9.9 fl (7.4-10.4); MONOCYTES % 8.2 % (0.0-11.0); NEUTROPHIL # 20.1 10^3/ul (1.6-7.5); NEUTROPHILS % 83.4 % (39.0-77.0); NUCLEATED RED BLOOD CELLS # 0.3 10^3/ul (0.0-0.0); NUCLEATED RED BLOOD CELLS% 1.4 /100WBC (0.0-0.0); PLATELET COUNT 539 10^3/UL (140-415); POSITIVE DIFF @See below; RED BLOOD COUNT 2.99 10^6/ul (4.70-6.10); RED CELL DISTRIBUTION WIDTH 23.3 % (11.5-14.5)
[2017-11-19 13:50] LABS: WHITE BLOOD COUNT 24.1 10^3/ul (4.8-10.8)
[2017-11-20] MEDS: OCULAR LUBRICANT 3.5 GM OPH OINT BOTH EYES ×4 (01:11→18:06)
[2017-11-20] MEDS: ARTIFICIAL TEARS 15 ML OPH BOTH EYES ×4 (01:11→18:06)
[2017-11-20] MEDS: ALBUTEROL HFA 8 GM INHALER INH (01:30)
[2017-11-20] MEDS: IPRATROPIUM (HFA) 12.9 GM INHALER INH (01:30)
[2017-11-20] MEDS: PIPER-TAZO 2.25 GM (PMX) 50 ML IVPB ×3 (06:10→22:07)
[2017-11-20] MEDS: PANTOPRAZOLE 40 MG INJ IV ×2 (06:10→18:05)
[2017-11-20 06:32] LABS: ADD MAN DIFF? NO
[2017-11-20 06:38] LABS: ABNORMAL IP MESSAGE 1; BASOPHIL # 0.1 10^3/ul (0.0-0.1); BASOPHILS % 0.2 % (0.0-2.0); EOSINOPHILS # 0.7 10^3/ul (0.0-0.5); EOSINOPHILS % 2.7 % (0.0-7.0); HEMATOCRIT 24.4 % (42.0-52.0); HEMOGLOBIN 7.5 g/dl (14.0-18.0); LYMPHOCYTES # 0.6 10^3/ul (0.8-2.9); LYMPHOCYTES % 2.4 % (15.0-51.0); MEAN CORPUSCULAR HEMOGLOBIN 25.7 pg (29.0-33.0); MEAN CORPUSCULAR HGB CONC 30.7 g/dl (32.0-37.0); MEAN CORPUSCULAR VOLUME 83.6 fl (82.0-101.0); MONOCYTE # 1.8 10^3/ul (0.3-0.9); MONOCYTES % 7.5 % (0.0-11.0); NEUTROPHIL # 20.7 10^3/ul (1.6-7.5); NEUTROPHILS % 84.5 % (39.0-77.0); NUCLEATED RED BLOOD CELLS # 0.3 10^3/ul (0.0-0.0); NUCLEATED RED BLOOD CELLS% 1.4 /100WBC (0.0-0.0); PLATELET COUNT 574 10^3/UL (140-415); POSITIVE DIFF @See below; RED BLOOD COUNT 2.92 10^6/ul (4.70-6.10); RED CELL DISTRIBUTION WIDTH 23.7 % (11.5-14.5)
[2017-11-20 06:38] LABS: WHITE BLOOD COUNT 24.4 10^3/ul (4.8-10.8)
[2017-11-20 07:36] LABS: ALANINE AMINOTRANSFERASE 27 IU/L (13-69); ALBUMIN 2.8 g/dl (3.3-4.9); ALBUMIN/GLOBULIN RATIO 0.96; ALKALINE PHOSPHATASE 55 IU/L (42-121); ANION GAP 20 (8-16); ASPARTATE AMINO TRANSFERASE 50 IU/L (15-46); BLOOD UREA NITROGEN 81 mg/dl (7-20); CALCIUM 8.6 mg/dl (8.4-10.2); CARBON DIOXIDE 23 mmol/L (21-31); CHLORIDE 97 mmol/L (97-110); CREATININE 6.49 mg/dl (0.61-1.24); GLUCOSE 90 mg/dl (70-220); POTASSIUM 3.8 mmol/L (3.5-5.1); SODIUM 136 mmol/L (135-144); TOTAL PROTEIN 5.7 g/dl (6.1-8.1)
[2017-11-20] MEDS: METOPROLOL 25 MG TAB NGT ×2 (08:53→21:01)
[2017-11-20] MEDS: VANCOMYCIN 750 MG in DEXTROSE 5% 150 ML IVPB (12:12)
[2017-11-20] MEDS: EPOETIN 10000 UNITS/ML (NON ESRD/NON ONCOLOGY) SC (18:08)
[2017-11-21] MEDS: OCULAR LUBRICANT 3.5 GM OPH OINT BOTH EYES ×4 (00:59→18:14)
[2017-11-21] MEDS: ARTIFICIAL TEARS 15 ML OPH BOTH EYES ×4 (00:59→18:13)
[2017-11-21 06:04] LABS: ADD MAN DIFF? NO
[2017-11-21 06:19] LABS: WHITE BLOOD COUNT 24.9 10^3/ul (4.8-10.8)
[2017-11-21 06:19] LABS: ABNORMAL IP MESSAGE 1; BASOPHIL # 0.1 10^3/ul (0.0-0.1); BASOPHILS % 0.2 % (0.0-2.0); EOSINOPHILS # 0.7 10^3/ul (0.0-0.5); EOSINOPHILS % 2.7 % (0.0-7.0); HEMATOCRIT 24.1 % (42.0-52.0); HEMOGLOBIN 7.4 g/dl (14.0-18.0); LYMPHOCYTES # 0.5 10^3/ul (0.8-2.9); MEAN CORPUSCULAR HGB CONC 30.7 g/dl (32.0-37.0); MEAN CORPUSCULAR VOLUME 84.6 fl (82.0-101.0); MEAN PLATELET VOLUME 10.2 fl (7.4-10.4); MONOCYTE # 1.5 10^3/ul (0.3-0.9); NEUTROPHIL # 21.5 10^3/ul (1.6-7.5); NEUTROPHILS % 86.5 % (39.0-77.0); NUCLEATED RED BLOOD CELLS # 0.3 10^3/ul (0.0-0.0); PLATELET COUNT 497 10^3/UL (140-415); POSITIVE DIFF @See below; RED BLOOD COUNT 2.85 10^6/ul (4.70-6.10); RED CELL DISTRIBUTION WIDTH 23.9 % (11.5-14.5)
[2017-11-21] MEDS: PIPER-TAZO 2.25 GM (PMX) 50 ML IVPB ×3 (06:24→21:02)
[2017-11-21] MEDS: PANTOPRAZOLE 40 MG INJ IV ×2 (06:24→18:13)
[2017-11-21 06:34] LABS: ANION GAP 17 (8-16); BLOOD UREA NITROGEN 91 mg/dl (7-20); CALCIUM 8.3 mg/dl (8.4-10.2); CARBON DIOXIDE 24 mmol/L (21-31); CHLORIDE 97 mmol/L (97-110); GLUCOSE 98 mg/dl (70-220); MAGNESIUM 2.4 mg/dl (1.7-2.5); PHOSPHORUS 8.8 mg/dl (2.5-4.9); SODIUM 134 mmol/L (135-144)
[2017-11-21] MEDS ORDERED: SEVELAMER 800 MG TAB NGT (09:00)
[2017-11-21] MEDS: METOPROLOL 25 MG TAB NGT ×2 (09:47→21:02)
[2017-11-21] MEDS ORDERED: SEVELAMER CARBONATE 0.8 GM PKT NGT (11:30)
[2017-11-21] MEDS: SEVELAMER CARBONATE 0.8 GM PKT NGT ×2 (12:29→21:01)
[2017-11-21] MEDS: DEXTROSE 5%-0.45% NACL 1,000 ML IV (16:47)
[2017-11-22] MEDS: ARTIFICIAL TEARS 15 ML OPH BOTH EYES ×4 (00:33→17:04)
[2017-11-22] MEDS: OCULAR LUBRICANT 3.5 GM OPH OINT BOTH EYES ×4 (00:34→19:52)
[2017-11-22 05:17] LABS: ADD MAN DIFF? NO
[2017-11-22 05:30] LABS: ABNORMAL IP MESSAGE 1; BASOPHIL # 0.1 10^3/ul (0.0-0.1); BASOPHILS % 0.3 % (0.0-2.0); EOSINOPHILS # 0.6 10^3/ul (0.0-0.5); EOSINOPHILS % 2.2 % (0.0-7.0); HEMOGLOBIN 7.4 g/dl (14.0-18.0); LYMPHOCYTES # 0.5 10^3/ul (0.8-2.9); LYMPHOCYTES % 1.9 % (15.0-51.0); MEAN CORPUSCULAR HEMOGLOBIN 25.3 pg (29.0-33.0); MEAN CORPUSCULAR HGB CONC 29.6 g/dl (32.0-37.0); MEAN CORPUSCULAR VOLUME 85.3 fl (82.0-101.0); MEAN PLATELET VOLUME 10.4 fl (7.4-10.4); MONOCYTE # 1.3 10^3/ul (0.3-0.9); MONOCYTES % 5.1 % (0.0-11.0); NEUTROPHIL # 23.4 10^3/ul (1.6-7.5); NEUTROPHILS % 88.2 % (39.0-77.0); NUCLEATED RED BLOOD CELLS # 0.3 10^3/ul (0.0-0.0); NUCLEATED RED BLOOD CELLS% 1.1 /100WBC (0.0-0.0); PLATELET COUNT 480 10^3/UL (140-415); POSITIVE DIFF @See below; RED BLOOD COUNT 2.93 10^6/ul (4.70-6.10); RED CELL DISTRIBUTION WIDTH 23.6 % (11.5-14.5)
[2017-11-22 05:30] LABS: WHITE BLOOD COUNT 26.5 10^3/ul (4.8-10.8)
[2017-11-22] MEDS: PANTOPRAZOLE 40 MG INJ IV ×2 (05:42→17:04)
[2017-11-22] MEDS: PIPER-TAZO 2.25 GM (PMX) 50 ML IVPB ×3 (05:42→21:33)
[2017-11-22] MEDS: DEXTROSE 5%-0.45% NACL 1,000 ML IV ×2 (05:46→16:59)
[2017-11-22 06:25] LABS: ANION GAP 21 (8-16); BLOOD UREA NITROGEN 96 mg/dl (7-20); CALCIUM 8.3 mg/dl (8.4-10.2); CARBON DIOXIDE 22 mmol/L (21-31); CHLORIDE 96 mmol/L (97-110); GLUCOSE 122 mg/dl (70-220); SODIUM 135 mmol/L (135-144)
[2017-11-22] MEDS: SEVELAMER CARBONATE 0.8 GM PKT NGT ×3 (08:13→21:33)
[2017-11-22] MEDS: METOPROLOL 25 MG TAB NGT ×2 (08:13→21:33)
[2017-11-22] MEDS ORDERED: CEFAZOLIN 2 GM in SOD CHLORIDE 0.9% 50 ML IVPB (11:00)
[2017-11-22] MEDS ORDERED: CEFAZOLIN 2 GM/50 ML (PMX) 50 ML IVPB (11:00)
[2017-11-22 12:50] LABS: IMMEDIATE SPIN CROSSMATCH 1 2
[2017-11-22] MEDS: BUMETANIDE 25 MG in DEXTROSE 5% 150 ML IV (16:51)
[2017-11-22] MEDS: EPOETIN 10000 UNITS/ML (NON ESRD/NON ONCOLOGY) SC (16:53)
[2017-11-23] MEDS: ARTIFICIAL TEARS 15 ML OPH BOTH EYES ×2 (00:08→06:02)
[2017-11-23] MEDS: OCULAR LUBRICANT 3.5 GM OPH OINT BOTH EYES ×2 (00:09→06:02)
[2017-11-23 05:37] LABS: ADD MAN DIFF? NO
[2017-11-23 05:42] LABS: ABNORMAL IP MESSAGE 1; BASOPHIL # 0.1 10^3/ul (0.0-0.1); BASOPHILS % 0.3 % (0.0-2.0); EOSINOPHILS # 0.4 10^3/ul (0.0-0.5); EOSINOPHILS % 1.6 % (0.0-7.0); HEMATOCRIT 29.5 % (42.0-52.0); HEMOGLOBIN 9.1 g/dl (14.0-18.0); LYMPHOCYTES # 0.5 10^3/ul (0.8-2.9); LYMPHOCYTES % 1.9 % (15.0-51.0); MEAN CORPUSCULAR HEMOGLOBIN 26.5 pg (29.0-33.0); MEAN CORPUSCULAR HGB CONC 30.8 g/dl (32.0-37.0); MEAN PLATELET VOLUME 10.4 fl (7.4-10.4); MONOCYTE # 1.1 10^3/ul (0.3-0.9); MONOCYTES % 4.4 % (0.0-11.0); NEUTROPHIL # 23.2 10^3/ul (1.6-7.5); NEUTROPHILS % 89.3 % (39.0-77.0); NUCLEATED RED BLOOD CELLS # 0.4 10^3/ul (0.0-0.0); NUCLEATED RED BLOOD CELLS% 1.5 /100WBC (0.0-0.0); PLATELET COUNT 447 10^3/UL (140-415); POSITIVE DIFF @See below; RED BLOOD COUNT 3.43 10^6/ul (4.70-6.10); RED CELL DISTRIBUTION WIDTH 22.4 % (11.5-14.5)
[2017-11-23] MEDS: PANTOPRAZOLE 40 MG INJ IV ×2 (06:01→17:21)
[2017-11-23] MEDS: PIPER-TAZO 2.25 GM (PMX) 50 ML IVPB ×2 (06:01→13:33)
[2017-11-23] MEDS: DEXTROSE 5%-0.45% NACL 1,000 ML IV (06:02)
[2017-11-23 06:19] LABS: ANION GAP 21 (8-16); BLOOD UREA NITROGEN 101 mg/dl (7-20); CALCIUM 8.7 mg/dl (8.4-10.2); CARBON DIOXIDE 22 mmol/L (21-31); CHLORIDE 94 mmol/L (97-110); GLUCOSE 119 mg/dl (70-220); POTASSIUM 4.1 mmol/L (3.5-5.1); SODIUM 133 mmol/L (135-144)
[2017-11-23 06:26] LABS: CREATININE 7.23 mg/dl (0.61-1.24)
[2017-11-23] MEDS: SEVELAMER CARBONATE 0.8 GM PKT NGT ×2 (09:00→13:00)
[2017-11-23] MEDS: METOPROLOL 25 MG TAB NGT ×2 (10:11→21:00)
[2017-11-23] MEDS: DEXTROSE 5%-0.9% NACL 1,000 ML IV (10:12)
[2017-11-23] MEDS: CEFAZOLIN 2 GM/50 ML (PMX) 50 ML IVPB (11:00)
[2017-11-23 12:29] LABS: AADO2 Arterial 440.5 mmHg (7.0-24.0); Allen Test ACCEPTAB; Arterial Base Excess -10.6 mmol/L (-3.0-3); Arterial Blood Gas Oxygen Sat 91.3 mmHG (95.0-100.0); Arterial COHb 0.3 % (0.0-3.0); Arterial Fraction of Oxyhgb 90.7 % (93.0-99.0); Arterial HCO3 18.5 mmol/L (22.0-26.0); Arterial MetHb 0.4 % (0.0-1.5); Arterial pCO2 57.7 mmhg (35-45); MODE VENT - AC; Site Right Radial
[2017-11-23] MEDS: SODIUM BICARBONATE (IV ADD) 100 MEQ in DEXTROSE 5%-0.9% NACL 1,000 ML IV (14:06)
[2017-11-23] MEDS ORDERED: PHENYLephrine (100 MCG/ML) 5ML SYG (16:18)
[2017-11-23] MEDS ORDERED: PROPOFOL 20 ML (16:19)
[2017-11-23] MEDS: BUMETANIDE 25 MG in DEXTROSE 5% 150 ML IV (16:21)
[2017-11-23] MEDS ORDERED: LIDOCAINE 1% (MDV) 20 ML INJ (20:19)
[2017-11-23] MEDS ORDERED: HEPARIN 1000 UNITS/ML 10 ML INJ (20:19)
[2017-11-24] MEDS: PIPER-TAZO 2.25 GM (PMX) 50 ML IVPB ×4 (01:26→21:31)
[2017-11-24] MEDS: SEVELAMER CARBONATE 0.8 GM PKT NGT ×4 (01:27→21:32)
[2017-11-24] MEDS: PANTOPRAZOLE 40 MG INJ IV ×2 (05:06→17:58)
[2017-11-24 05:24] LABS: ADD MAN DIFF? NO
[2017-11-24 05:33] LABS: WHITE BLOOD COUNT 29.3 10^3/ul (4.8-10.8)
[2017-11-24 05:33] LABS: ABNORMAL IP MESSAGE 1; BASOPHIL # 0.1 10^3/ul (0.0-0.1); BASOPHILS % 0.3 % (0.0-2.0); EOSINOPHILS # 0.4 10^3/ul (0.0-0.5); EOSINOPHILS % 1.3 % (0.0-7.0); HEMATOCRIT 25.8 % (42.0-52.0); HEMOGLOBIN 8.1 g/dl (14.0-18.0); LYMPHOCYTES # 0.3 10^3/ul (0.8-2.9); MEAN CORPUSCULAR HEMOGLOBIN 26.8 pg (29.0-33.0); MEAN CORPUSCULAR HGB CONC 31.4 g/dl (32.0-37.0); MEAN CORPUSCULAR VOLUME 85.4 fl (82.0-101.0); MEAN PLATELET VOLUME 10.3 fl (7.4-10.4); MONOCYTE # 1.4 10^3/ul (0.3-0.9); MONOCYTES % 4.7 % (0.0-11.0); NEUTROPHIL # 26.6 10^3/ul (1.6-7.5); NEUTROPHILS % 90.7 % (39.0-77.0); NUCLEATED RED BLOOD CELLS # 0.4 10^3/ul (0.0-0.0); NUCLEATED RED BLOOD CELLS% 1.4 /100WBC (0.0-0.0); PLATELET COUNT 330 10^3/UL (140-415); POSITIVE DIFF @See below; RED BLOOD COUNT 3.02 10^6/ul (4.70-6.10); RED CELL DISTRIBUTION WIDTH 22.3 % (11.5-14.5)
[2017-11-24 06:21] LABS: ANION GAP 20 (8-16); BLOOD UREA NITROGEN 87 mg/dl (7-20); CALCIUM 8.4 mg/dl (8.4-10.2); CARBON DIOXIDE 24 mmol/L (21-31); CHLORIDE 96 mmol/L (97-110); GLUCOSE 105 mg/dl (70-220); POTASSIUM 3.8 mmol/L (3.5-5.1); SODIUM 136 mmol/L (135-144)
[2017-11-24 06:46] LABS: CREATININE 6.55 mg/dl (0.61-1.24)
[2017-11-24] MEDS: METOPROLOL 25 MG TAB NGT ×2 (09:28→21:32)
[2017-11-24] MEDS: SODIUM BICARBONATE (IV ADD) 100 MEQ in DEXTROSE 5%-0.9% NACL 1,000 ML IV (09:28)
[2017-11-24] MEDS: VANCOMYCIN 750 MG in DEXTROSE 5% 150 ML IVPB (12:01)
[2017-11-24] MEDS: EPOETIN 10000 UNITS/ML (NON ESRD/NON ONCOLOGY) SC (17:58)
[2017-11-25] MEDS: PANTOPRAZOLE 40 MG INJ IV ×2 (05:14→18:40)
[2017-11-25] MEDS: PIPER-TAZO 2.25 GM (PMX) 50 ML IVPB ×3 (05:14→21:08)
[2017-11-25 05:16] LABS: ABNORMAL IP MESSAGE 1; HEMATOCRIT 24.1 % (42.0-52.0); HEMOGLOBIN 7.6 g/dl (14.0-18.0); MEAN CORPUSCULAR HEMOGLOBIN 27.1 pg (29.0-33.0); MEAN CORPUSCULAR HGB CONC 31.5 g/dl (32.0-37.0); MEAN CORPUSCULAR VOLUME 86.1 fl (82.0-101.0); MEAN PLATELET VOLUME 9.5 fl (7.4-10.4); NUCLEATED RED BLOOD CELLS% 1.2 /100WBC (0.0-0.0); PLATELET COUNT 214 10^3/UL (140-415); POSITIVE DIFF @See below; RED CELL DISTRIBUTION WIDTH 22.8 % (11.5-14.5)
[2017-11-25 05:39] LABS: LACTIC ACID 1.1 mmol/L (0.5-2.0)
[2017-11-25 05:42] LABS: AADO2 Arterial 419.5 mmHg (7.0-24.0); Allen Test ACCEPTAB; Arterial Base Excess -1.1 mmol/L (-3.0-3); Arterial COHb 0.1 % (0.0-3.0); Arterial Fraction of Oxyhgb 93.6 % (93.0-99.0); Arterial HCO3 27.4 mmol/L (22.0-26.0); Arterial MetHb 0.3 % (0.0-1.5); Arterial Total Hemglobin 8.4 g/dl (12.0-18.0); Arterial pCO2 71.3 mmhg (35-45); MODE VENT - AC; Site Right Radial
[2017-11-25 05:49] LABS: ADD MAN DIFF? YES
[2017-11-25 06:15] LABS: ALANINE AMINOTRANSFERASE 29 IU/L (13-69); ALBUMIN/GLOBULIN RATIO 1.07; ALKALINE PHOSPHATASE 75 IU/L (42-121); ANION GAP 20 (8-16); ASPARTATE AMINO TRANSFERASE 40 IU/L (15-46); BLOOD UREA NITROGEN 79 mg/dl (7-20); CARBON DIOXIDE 25 mmol/L (21-31); CHLORIDE 96 mmol/L (97-110); GLUCOSE 135 mg/dl (70-220); SODIUM 137 mmol/L (135-144); TOTAL PROTEIN 5.8 g/dl (6.1-8.1)
[2017-11-25 06:24] LABS: CREATININE 5.88 mg/dl (0.61-1.24)
[2017-11-25 07:55] LABS: ANISOCYTOSIS 2+ (0-0); BASOPHIL #M 0.3 10^3/ul (0.0-0.0); BASOPHILS % (M) 1 % (0-2); BURR CELLS 1+ (0-0); EOSINOPHILS % (M) 1 % (0-7); ERYTHROBLAST% (NRBC) (M) 6 % (0-0); HYPOCHROMASIA 1+ (0-0); LYMPHOCYTES #M 0.9 10^3/ul (0.8-2.9); LYMPHOCYTES % (M) 3 % (15-51); MICROCYTOSIS 1+ (0-0); MONOCYTE #M 1.8 10^3/ul (0.3-0.9); MONOCYTES % (M) 6 % (0-11); PLATELET ESTIMATE NORMAL; POIKILOCYTOSIS 1+ (0-0); POLYCHROMASIA 2+ (0-0); SEGMENTED NEUTROPHILS (M) % 89 % (39-77); SMUDGE%M 9 % (0-0)
[2017-11-25] MEDS: SEVELAMER CARBONATE 0.8 GM PKT NGT ×3 (08:53→21:01)
[2017-11-25] MEDS: METOPROLOL 25 MG TAB NGT ×2 (08:53→21:02)
[2017-11-25] MEDS: METOCLOPRAMIDE 10 MG INJ IV ×2 (10:25→21:02)
[2017-11-25] MEDS: SODIUM BICARBONATE (IV ADD) 100 MEQ in DEXTROSE 5%-0.9% NACL 1,000 ML IV (13:37)
[2017-11-25] MEDS: DEXTROSE 5% 1,000 ML IV (14:09)
[2017-11-25] MEDS ORDERED: ALBUMIN HUMAN 25% 0 ML (15:41)
[2017-11-25] MEDS: morphine 2 MG INJ IV (16:29)
[2017-11-26 05:10] LABS: AADO2 Arterial 308.9 mmHg (7.0-24.0); Allen Test ACCEPTAB; Arterial Base Excess 1.4 mmol/L (-3.0-3); Arterial Blood Gas Oxygen Sat 92.9 mmHG (95.0-100.0); Arterial COHb 0.2 % (0.0-3.0); Arterial Fraction of Oxyhgb 92.3 % (93.0-99.0); Arterial HCO3 26.8 mmol/L (22.0-26.0); Arterial MetHb 0.4 % (0.0-1.5); Arterial Total Hemglobin 8.5 g/dl (12.0-18.0); Arterial pCO2 46.5 mmhg (35-45); MODE VENT - AC; Site Right Radial
[2017-11-26] MEDS: PIPER-TAZO 2.25 GM (PMX) 50 ML IVPB ×2 (05:55→14:24)
[2017-11-26] MEDS: PANTOPRAZOLE 40 MG INJ IV ×2 (05:56→18:42)
[2017-11-26 06:30] LABS: ANION GAP 16 (8-16)
[2017-11-26 06:31] LABS: BLOOD UREA NITROGEN 59 mg/dl (7-20); CALCIUM 7.9 mg/dl (8.4-10.2); CARBON DIOXIDE 27 mmol/L (21-31); CHLORIDE 95 mmol/L (97-110); CREATININE 4.79 mg/dl (0.61-1.24); GLUCOSE 113 mg/dl (70-220); POTASSIUM 3.3 mmol/L (3.5-5.1); SODIUM 135 mmol/L (135-144)
[2017-11-26 07:45] LABS: ADD MAN DIFF? NO
[2017-11-26 07:51] LABS: WHITE BLOOD COUNT 24.3 10^3/ul (4.8-10.8)
[2017-11-26 07:51] LABS: ABNORMAL IP MESSAGE 1; BASOPHIL # 0.1 10^3/ul (0.0-0.1); BASOPHILS % 0.6 % (0.0-2.0); EOSINOPHILS # 0.6 10^3/ul (0.0-0.5); EOSINOPHILS % 2.3 % (0.0-7.0); HEMATOCRIT 22.6 % (42.0-52.0); HEMOGLOBIN 7.2 g/dl (14.0-18.0); LYMPHOCYTES # 0.8 10^3/ul (0.8-2.9); LYMPHOCYTES % 3.2 % (15.0-51.0); MEAN CORPUSCULAR HEMOGLOBIN 27.4 pg (29.0-33.0); MEAN CORPUSCULAR HGB CONC 31.9 g/dl (32.0-37.0); MEAN CORPUSCULAR VOLUME 85.9 fl (82.0-101.0); MEAN PLATELET VOLUME 10.9 fl (7.4-10.4); MONOCYTE # 1.7 10^3/ul (0.3-0.9); NEUTROPHIL # 20.7 10^3/ul (1.6-7.5); NEUTROPHILS % 85.3 % (39.0-77.0); NUCLEATED RED BLOOD CELLS # 0.2 10^3/ul (0.0-0.0); NUCLEATED RED BLOOD CELLS% 0.9 /100WBC (0.0-0.0); PLATELET COUNT 240 10^3/UL (140-415); POSITIVE DIFF @See below; RED BLOOD COUNT 2.63 10^6/ul (4.70-6.10); RED CELL DISTRIBUTION WIDTH 23.7 % (11.5-14.5)
[2017-11-26] MEDS: POTASSIUM CHLORIDE 50 ML IVPB ×3 (08:00→10:00)
[2017-11-26] MEDS: METOCLOPRAMIDE 10 MG INJ IV ×2 (09:55→20:18)
[2017-11-26] MEDS: METOPROLOL 25 MG TAB NGT ×2 (09:55→20:18)
[2017-11-26] MEDS: SEVELAMER CARBONATE 0.8 GM PKT NGT ×3 (09:56→20:18)
[2017-11-26] MEDS: SOD CHLORIDE 0.9% 250 ML IV* (13:30)
[2017-11-26] MEDS: DEXTROSE 5% 1,000 ML IV (14:28)
[2017-11-26 15:05] LABS: IMMEDIATE SPIN CROSSMATCH 1 2
[2017-11-26] MEDS: morphine 2 MG INJ IV (16:28)
[2017-11-27] MEDS: PANTOPRAZOLE 40 MG INJ IV ×2 (05:15→18:24)
[2017-11-27] MEDS: DEXTROSE 5% 1,000 ML IV (05:26)
[2017-11-27 05:48] LABS: ADD MAN DIFF? NO
[2017-11-27 05:59] LABS: ABNORMAL IP MESSAGE 1; BASOPHIL # 0.1 10^3/ul (0.0-0.1); BASOPHILS % 0.5 % (0.0-2.0); EOSINOPHILS # 0.7 10^3/ul (0.0-0.5); HEMATOCRIT 27.5 % (42.0-52.0); HEMOGLOBIN 8.9 g/dl (14.0-18.0); LYMPHOCYTES # 0.7 10^3/ul (0.8-2.9); LYMPHOCYTES % 3.2 % (15.0-51.0); MEAN CORPUSCULAR HEMOGLOBIN 27.4 pg (29.0-33.0); MEAN CORPUSCULAR HGB CONC 32.4 g/dl (32.0-37.0); MEAN CORPUSCULAR VOLUME 84.6 fl (82.0-101.0); MEAN PLATELET VOLUME 10.1 fl (7.4-10.4); MONOCYTE # 1.6 10^3/ul (0.3-0.9); MONOCYTES % 7.2 % (0.0-11.0); NEUTROPHIL # 19.1 10^3/ul (1.6-7.5); NEUTROPHILS % 84.7 % (39.0-77.0); NUCLEATED RED BLOOD CELLS # 0.2 10^3/ul (0.0-0.0); NUCLEATED RED BLOOD CELLS% 0.7 /100WBC (0.0-0.0); PLATELET COUNT 228 10^3/UL (140-415); POSITIVE DIFF @See below; RED BLOOD COUNT 3.25 10^6/ul (4.70-6.10); RED CELL DISTRIBUTION WIDTH 21.4 % (11.5-14.5)
[2017-11-27 05:59] LABS: WHITE BLOOD COUNT 22.5 10^3/ul (4.8-10.8)
[2017-11-27 06:37] LABS: ALANINE AMINOTRANSFERASE 37 IU/L (13-69); ALBUMIN/GLOBULIN RATIO 0.88; ALKALINE PHOSPHATASE 114 IU/L (42-121); ANION GAP 14 (8-16); ASPARTATE AMINO TRANSFERASE 51 IU/L (15-46); BILIRUBIN,INDIRECT 0.1 mg/dl (0-1.1); BILIRUBIN,TOTAL 0.1 mg/dl (0.2-1.3); BLOOD UREA NITROGEN 76 mg/dl (7-20); CALCIUM 8.8 mg/dl (8.4-10.2); CARBON DIOXIDE 28 mmol/L (21-31); CHLORIDE 94 mmol/L (97-110); GLUCOSE 109 mg/dl (70-220); POTASSIUM 3.6 mmol/L (3.5-5.1); SODIUM 132 mmol/L (135-144); TOTAL PROTEIN 6.4 g/dl (6.1-8.1)
[2017-11-27 06:44] LABS: CREATININE 5.21 mg/dl (0.61-1.24)
[2017-11-27 07:31] LABS: PHOSPHORUS 5.4 mg/dl (2.5-4.9)
[2017-11-27 07:31] LABS: MAGNESIUM 2.3 mg/dl (1.7-2.5)
[2017-11-27] MEDS: METOCLOPRAMIDE 10 MG INJ IV ×2 (09:08→21:00)
[2017-11-27] MEDS: METOPROLOL 25 MG TAB NGT ×2 (09:09→21:00)
[2017-11-27] MEDS: SEVELAMER CARBONATE 0.8 GM PKT NGT ×3 (09:09→21:00)
[2017-11-27] MEDS ORDERED: LIDOCAINE 1% (MPF) 30 ML INJ (10:49)
[2017-11-27] MEDS ORDERED: PROPOFOL 40 ML (10:51)
[2017-11-27 12:43] LABS: AADO2 Arterial 305.3 mmHg (7.0-24.0); Allen Test ACCEPTAB; Arterial Base Excess 0.5 mmol/L (-3.0-3); Arterial Blood Gas Oxygen Sat 95.7 mmHG (95.0-100.0); Arterial COHb 0.1 % (0.0-3.0); Arterial Fraction of Oxyhgb 95.2 % (93.0-99.0); Arterial MetHb 0.4 % (0.0-1.5); Arterial Total Hemglobin 9.6 g/dl (12.0-18.0); Arterial pCO2 39.3 mmhg (35-45); MODE VENT - AC; Site Right Radial
[2017-11-27] MEDS: EPOETIN 10000 UNITS/ML (NON ESRD/NON ONCOLOGY) SC (18:36)
[2017-11-28] MEDS: PANTOPRAZOLE 40 MG INJ IV ×2 (05:47→18:30)
[2017-11-28 06:03] LABS: ADD MAN DIFF? NO
[2017-11-28 06:10] LABS: BASOPHIL # 0.1 10^3/ul (0.0-0.1); BASOPHILS % 0.5 % (0.0-2.0); EOSINOPHILS # 0.6 10^3/ul (0.0-0.5); EOSINOPHILS % 2.9 % (0.0-7.0); HEMATOCRIT 26.1 % (42.0-52.0); HEMOGLOBIN 8.6 g/dl (14.0-18.0); LYMPHOCYTES # 0.7 10^3/ul (0.8-2.9); LYMPHOCYTES % 3.3 % (15.0-51.0); MEAN CORPUSCULAR HEMOGLOBIN 27.7 pg (29.0-33.0); MEAN CORPUSCULAR VOLUME 83.9 fl (82.0-101.0); MEAN PLATELET VOLUME 10.2 fl (7.4-10.4); MONOCYTE # 1.4 10^3/ul (0.3-0.9); MONOCYTES % 6.9 % (0.0-11.0); NEUTROPHIL # 17.5 10^3/ul (1.6-7.5); NEUTROPHILS % 85.5 % (39.0-77.0); NUCLEATED RED BLOOD CELLS% 0.1 /100WBC (0.0-0.0); PLATELET COUNT 224 10^3/UL (140-415); RED BLOOD COUNT 3.11 10^6/ul (4.70-6.10); RED CELL DISTRIBUTION WIDTH 21.5 % (11.5-14.5)
[2017-11-28 06:10] LABS: WHITE BLOOD COUNT 20.5 10^3/ul (4.8-10.8)
[2017-11-28 06:53] LABS: ALANINE AMINOTRANSFERASE 40 IU/L (13-69); ALBUMIN 2.9 g/dl (3.3-4.9); ALBUMIN/GLOBULIN RATIO 0.93; ALKALINE PHOSPHATASE 124 IU/L (42-121); ANION GAP 16 (8-16); ASPARTATE AMINO TRANSFERASE 49 IU/L (15-46); BILIRUBIN,INDIRECT 0.2 mg/dl (0-1.1); BILIRUBIN,TOTAL 0.2 mg/dl (0.2-1.3); BLOOD UREA NITROGEN 66 mg/dl (7-20); CALCIUM 8.3 mg/dl (8.4-10.2); CARBON DIOXIDE 26 mmol/L (21-31); CHLORIDE 95 mmol/L (97-110); CREATININE 4.61 mg/dl (0.61-1.24); GLUCOSE 109 mg/dl (70-220); POTASSIUM 3.6 mmol/L (3.5-5.1); SODIUM 133 mmol/L (135-144)
[2017-11-28] MEDS ORDERED: HEPARIN 1000 UNITS/ML 10 ML INJ (11:02)
[2017-11-28] MEDS: HEPARIN 1000 UNITS/ML 10 ML INJ CATHETER (11:10)
[2017-11-28] MEDS: SEVELAMER CARBONATE 0.8 GM PKT NGT ×3 (11:39→20:36)
[2017-11-28] MEDS: METOPROLOL 25 MG TAB NGT ×2 (11:40→20:36)
[2017-11-28] MEDS ORDERED: VANCOMYCIN IV PER PHARMACY XX (12:00)
[2017-11-28] MEDS: CEFEPIME 1GM/50 ML (PMX) 50 ML IVPB (12:45)
[2017-11-28] MEDS ORDERED: VANCOMYCIN 750 MG in DEXTROSE 5% 150 ML IVPB (13:00)
[2017-11-29 05:12] LABS: ADD MAN DIFF? NO
[2017-11-29 05:15] LABS: ABNORMAL IP MESSAGE 1; BASOPHIL # 0.1 10^3/ul (0.0-0.1); BASOPHILS % 0.5 % (0.0-2.0); EOSINOPHILS # 0.8 10^3/ul (0.0-0.5); EOSINOPHILS % 4.3 % (0.0-7.0); HEMATOCRIT 27.1 % (42.0-52.0); HEMOGLOBIN 8.4 g/dl (14.0-18.0); LYMPHOCYTES # 0.5 10^3/ul (0.8-2.9); LYMPHOCYTES % 2.4 % (15.0-51.0); MEAN CORPUSCULAR HEMOGLOBIN 26.8 pg (29.0-33.0); MEAN CORPUSCULAR VOLUME 86.3 fl (82.0-101.0); MEAN PLATELET VOLUME 10.5 fl (7.4-10.4); MONOCYTE # 1.6 10^3/ul (0.3-0.9); MONOCYTES % 8.5 % (0.0-11.0); NEUTROPHIL # 15.4 10^3/ul (1.6-7.5); NEUTROPHILS % 83.3 % (39.0-77.0); PLATELET COUNT 255 10^3/UL (140-415); POSITIVE DIFF @See below; RED BLOOD COUNT 3.14 10^6/ul (4.70-6.10); RED CELL DISTRIBUTION WIDTH 21.5 % (11.5-14.5)
[2017-11-29 05:15] LABS: WHITE BLOOD COUNT 18.5 10^3/ul (4.8-10.8)
[2017-11-29] MEDS: PANTOPRAZOLE 40 MG INJ IV ×2 (05:25→17:21)
[2017-11-29 05:52] LABS: ALANINE AMINOTRANSFERASE 46 IU/L (13-69); ALBUMIN/GLOBULIN RATIO 0.96; ALKALINE PHOSPHATASE 157 IU/L (42-121); ANION GAP 18 (8-16); ASPARTATE AMINO TRANSFERASE 54 IU/L (15-46); BLOOD UREA NITROGEN 83 mg/dl (7-20); CALCIUM 8.4 mg/dl (8.4-10.2); CARBON DIOXIDE 27 mmol/L (21-31); CHLORIDE 96 mmol/L (97-110); GLUCOSE 129 mg/dl (70-220); POTASSIUM 3.5 mmol/L (3.5-5.1); SODIUM 137 mmol/L (135-144); TOTAL PROTEIN 6.1 g/dl (6.1-8.1)
[2017-11-29 05:59] LABS: CREATININE 4.51 mg/dl (0.61-1.24)
[2017-11-29] MEDS: morphine 2 MG INJ IV ×2 (08:06→13:32)
[2017-11-29] MEDS: SEVELAMER CARBONATE 0.8 GM PKT NGT ×3 (08:06→21:50)
[2017-11-29] MEDS: METOPROLOL 25 MG TAB NGT ×3 (08:06→21:52)
[2017-11-29] MEDS: ALBUMIN HUMAN 25% 200 ML IV (09:41)
[2017-11-29] MEDS: EPOETIN 10000 UNITS/ML (NON ESRD/NON ONCOLOGY) SC (17:21)
[2017-11-30 05:12] LABS: ADD MAN DIFF? NO
[2017-11-30 05:20] LABS: ABNORMAL IP MESSAGE 1; BASOPHIL # 0.1 10^3/ul (0.0-0.1); BASOPHILS % 0.7 % (0.0-2.0); HEMATOCRIT 24.4 % (42.0-52.0); HEMOGLOBIN 7.8 g/dl (14.0-18.0); LYMPHOCYTES # 0.5 10^3/ul (0.8-2.9); LYMPHOCYTES % 2.7 % (15.0-51.0); MEAN CORPUSCULAR HEMOGLOBIN 27.7 pg (29.0-33.0); MEAN CORPUSCULAR VOLUME 86.5 fl (82.0-101.0); MEAN PLATELET VOLUME 11.1 fl (7.4-10.4); MONOCYTE # 1.3 10^3/ul (0.3-0.9); MONOCYTES % 7.7 % (0.0-11.0); NEUTROPHIL # 13.7 10^3/ul (1.6-7.5); NEUTROPHILS % 82.4 % (39.0-77.0); NUCLEATED RED BLOOD CELLS% 0.1 /100WBC (0.0-0.0); PLATELET COUNT 241 10^3/UL (140-415); POSITIVE DIFF @See below; RED BLOOD COUNT 2.82 10^6/ul (4.70-6.10); RED CELL DISTRIBUTION WIDTH 21.2 % (11.5-14.5)
[2017-11-30 05:20] LABS: WHITE BLOOD COUNT 16.6 10^3/ul (4.8-10.8)
[2017-11-30] MEDS: PANTOPRAZOLE 40 MG INJ IV ×2 (05:32→18:09)
[2017-11-30 06:08] LABS: ALANINE AMINOTRANSFERASE 39 IU/L (13-69); ALBUMIN 3.3 g/dl (3.3-4.9); ALBUMIN/GLOBULIN RATIO 1.06; ALKALINE PHOSPHATASE 136 IU/L (42-121); ANION GAP 18 (8-16); ASPARTATE AMINO TRANSFERASE 41 IU/L (15-46); BILIRUBIN,INDIRECT 0.1 mg/dl (0-1.1); BILIRUBIN,TOTAL 0.1 mg/dl (0.2-1.3); BLOOD UREA NITROGEN 75 mg/dl (7-20); CALCIUM 8.7 mg/dl (8.4-10.2); CARBON DIOXIDE 26 mmol/L (21-31); CHLORIDE 96 mmol/L (97-110); CREATININE 4.59 mg/dl (0.61-1.24); GLUCOSE 129 mg/dl (70-220); POTASSIUM 3.5 mmol/L (3.5-5.1); SODIUM 136 mmol/L (135-144); TOTAL PROTEIN 6.4 g/dl (6.1-8.1)
[2017-11-30] MEDS: SEVELAMER CARBONATE 0.8 GM PKT NGT ×3 (08:12→20:52)
[2017-11-30] MEDS: METOPROLOL 25 MG TAB NGT ×2 (08:12→20:54)
[2017-11-30] MEDS ORDERED: BALSAM PERU/CASTOR OIL 60 GM TUBE TOP (09:00)
[2017-11-30 09:06] LABS: AADO2 Arterial 215.4 mmHg (7.0-24.0); Allen Test ACCEPTAB; Arterial Base Excess 1.9 mmol/L (-3.0-3); Arterial Blood Gas Oxygen Sat 87.5 mmHG (95.0-100.0); Arterial COHb 0.3 % (0.0-3.0); Arterial MetHb 0.3 % (0.0-1.5); Arterial Total Hemglobin 8.8 g/dl (12.0-18.0); MODE VENT - AC; Site Right Radial
[2017-11-30] MEDS: morphine 2 MG INJ IV (16:02)
[2017-11-30] MEDS: LORAZEPAM 2 MG INJ IV (16:26)
[2017-12-01] MEDS: PANTOPRAZOLE 40 MG INJ IV (05:40)
[2017-12-01 05:48] LABS: ADD MAN DIFF? NO
[2017-12-01 06:07] LABS: WHITE BLOOD COUNT 17.1 10^3/ul (4.8-10.8)
[2017-12-01 06:07] LABS: ABNORMAL IP MESSAGE 1; BASOPHIL # 0.1 10^3/ul (0.0-0.1); BASOPHILS % 0.6 % (0.0-2.0); EOSINOPHILS # 1.2 10^3/ul (0.0-0.5); EOSINOPHILS % 6.8 % (0.0-7.0); HEMATOCRIT 24.4 % (42.0-52.0); HEMOGLOBIN 7.8 g/dl (14.0-18.0); LYMPHOCYTES # 0.5 10^3/ul (0.8-2.9); LYMPHOCYTES % 2.9 % (15.0-51.0); MEAN CORPUSCULAR HEMOGLOBIN 27.8 pg (29.0-33.0); MEAN CORPUSCULAR VOLUME 86.8 fl (82.0-101.0); MEAN PLATELET VOLUME 10.9 fl (7.4-10.4); MONOCYTE # 1.3 10^3/ul (0.3-0.9); MONOCYTES % 7.7 % (0.0-11.0); NEUTROPHIL # 13.9 10^3/ul (1.6-7.5); NEUTROPHILS % 81.3 % (39.0-77.0); NUCLEATED RED BLOOD CELLS% 0.1 /100WBC (0.0-0.0); PLATELET COUNT 277 10^3/UL (140-415); POSITIVE DIFF @See below; RED BLOOD COUNT 2.81 10^6/ul (4.70-6.10); RED CELL DISTRIBUTION WIDTH 21.2 % (11.5-14.5)
[2017-12-01 06:23] LABS: ALANINE AMINOTRANSFERASE 44 IU/L (13-69); ALBUMIN 3.1 g/dl (3.3-4.9); ALBUMIN/GLOBULIN RATIO 0.93; ALKALINE PHOSPHATASE 159 IU/L (42-121); ANION GAP 15 (8-16); ASPARTATE AMINO TRANSFERASE 45 IU/L (15-46); BLOOD UREA NITROGEN 97 mg/dl (7-20); CALCIUM 8.9 mg/dl (8.4-10.2); CARBON DIOXIDE 27 mmol/L (21-31); CHLORIDE 96 mmol/L (97-110); GLUCOSE 135 mg/dl (70-220); POTASSIUM 3.6 mmol/L (3.5-5.1); SODIUM 134 mmol/L (135-144); TOTAL PROTEIN 6.4 g/dl (6.1-8.1)
[2017-12-01] MEDS: SEVELAMER CARBONATE 0.8 GM PKT NGT ×3 (08:14→20:31)
[2017-12-01] MEDS: METOPROLOL 25 MG TAB NGT ×2 (08:14→20:32)
[2017-12-01] MEDS: morphine 2 MG INJ IV (11:26)
[2017-12-01] MEDS: LANSOPRAZOLE 30 MG CAP NGT (17:41)
[2017-12-01] MEDS: EPOETIN 10000 UNITS/ML (NON ESRD/NON ONCOLOGY) SC (17:43)
[2017-12-02] MEDS: LANSOPRAZOLE 30 MG CAP NGT ×2 (06:10→18:45)
[2017-12-02 07:10] LABS: ALANINE AMINOTRANSFERASE 53 IU/L (13-69); ALBUMIN/GLOBULIN RATIO 0.96; ALKALINE PHOSPHATASE 184 IU/L (42-121); ANION GAP 18 (8-16); ASPARTATE AMINO TRANSFERASE 63 IU/L (15-46); BILIRUBIN,INDIRECT 0.1 mg/dl (0-1.1); BILIRUBIN,TOTAL 0.1 mg/dl (0.2-1.3); BLOOD UREA NITROGEN 82 mg/dl (7-20); CALCIUM 8.7 mg/dl (8.4-10.2); CARBON DIOXIDE 27 mmol/L (21-31); CHLORIDE 97 mmol/L (97-110); GLUCOSE 93 mg/dl (70-220); POTASSIUM 3.7 mmol/L (3.5-5.1); SODIUM 138 mmol/L (135-144); TOTAL PROTEIN 6.1 g/dl (6.1-8.1)
[2017-12-02 07:12] LABS: ADD MAN DIFF? NO
[2017-12-02 07:29] LABS: WHITE BLOOD COUNT 14.1 10^3/ul (4.8-10.8)
[2017-12-02 07:29] LABS: BASOPHIL # 0.1 10^3/ul (0.0-0.1); BASOPHILS % 0.9 % (0.0-2.0); EOSINOPHILS # 1.2 10^3/ul (0.0-0.5); EOSINOPHILS % 8.6 % (0.0-7.0); HEMATOCRIT 23.9 % (42.0-52.0); HEMOGLOBIN 7.5 g/dl (14.0-18.0); LYMPHOCYTES # 0.7 10^3/ul (0.8-2.9); LYMPHOCYTES % 4.6 % (15.0-51.0); MEAN CORPUSCULAR HEMOGLOBIN 27.1 pg (29.0-33.0); MEAN CORPUSCULAR HGB CONC 31.4 g/dl (32.0-37.0); MEAN CORPUSCULAR VOLUME 86.3 fl (82.0-101.0); MEAN PLATELET VOLUME 11.4 fl (7.4-10.4); MONOCYTE # 1.2 10^3/ul (0.3-0.9); MONOCYTES % 8.5 % (0.0-11.0); NEUTROPHIL # 10.8 10^3/ul (1.6-7.5); NEUTROPHILS % 76.9 % (39.0-77.0); PLATELET COUNT 325 10^3/UL (140-415); RED BLOOD COUNT 2.77 10^6/ul (4.70-6.10); RED CELL DISTRIBUTION WIDTH 21.6 % (11.5-14.5)
[2017-12-02] MEDS: METOPROLOL 25 MG TAB NGT ×2 (08:52→21:58)
[2017-12-02] MEDS: SEVELAMER CARBONATE 0.8 GM PKT NGT ×3 (08:52→21:57)
[2017-12-02] MEDS: LORAZEPAM 2 MG INJ IV (11:48)
[2017-12-02] MEDS: SENNA/DOCUSATE NA (8.6MG/50MG) TAB PO (13:32)
[2017-12-02] MEDS: ACETAMINOPHEN 650MG/20.3ML CUP PO (21:59)
[2017-12-03 05:03] LABS: AADO2 Arterial 243.2 mmHg (7.0-24.0); Allen Test ACCEPTAB; Arterial Base Excess -1.3 mmol/L (-3.0-3); Arterial Blood Gas Oxygen Sat 91.9 mmHG (95.0-100.0); Arterial COHb 0.4 % (0.0-3.0); Arterial Fraction of Oxyhgb 91.2 % (93.0-99.0); Arterial HCO3 24.1 mmol/L (22.0-26.0); Arterial MetHb 0.4 % (0.0-1.5); Arterial Total Hemglobin 9.1 g/dl (12.0-18.0); Arterial pCO2 43.3 mmhg (35-45); MODE VENT - AC; Site Right Radial
[2017-12-03 05:26] LABS: ADD MAN DIFF? NO
[2017-12-03 05:34] LABS: WHITE BLOOD COUNT 13.6 10^3/ul (4.8-10.8)
[2017-12-03 05:34] LABS: BASOPHIL # 0.1 10^3/ul (0.0-0.1); BASOPHILS % 0.7 % (0.0-2.0); EOSINOPHILS # 1.5 10^3/ul (0.0-0.5); EOSINOPHILS % 10.9 % (0.0-7.0); HEMATOCRIT 26.1 % (42.0-52.0); HEMOGLOBIN 8.1 g/dl (14.0-18.0); LYMPHOCYTES # 0.7 10^3/ul (0.8-2.9); LYMPHOCYTES % 4.8 % (15.0-51.0); MEAN CORPUSCULAR HEMOGLOBIN 26.7 pg (29.0-33.0); MEAN CORPUSCULAR VOLUME 86.1 fl (82.0-101.0); MEAN PLATELET VOLUME 11.3 fl (7.4-10.4); MONOCYTE # 1.2 10^3/ul (0.3-0.9); MONOCYTES % 9.1 % (0.0-11.0); NEUTROPHIL # 10.1 10^3/ul (1.6-7.5); NEUTROPHILS % 73.9 % (39.0-77.0); PLATELET COUNT 430 10^3/UL (140-415); RED BLOOD COUNT 3.03 10^6/ul (4.70-6.10); RED CELL DISTRIBUTION WIDTH 21.7 % (11.5-14.5)
[2017-12-03] MEDS: LANSOPRAZOLE 30 MG CAP NGT ×2 (05:52→18:26)
[2017-12-03] MEDS: morphine 2 MG INJ IV ×2 (05:54→11:15)
[2017-12-03 06:03] LABS: ALANINE AMINOTRANSFERASE 67 IU/L (13-69); ALBUMIN 3.2 g/dl (3.3-4.9); ALBUMIN/GLOBULIN RATIO 0.86; ALKALINE PHOSPHATASE 217 IU/L (42-121); ANION GAP 16 (8-16); ASPARTATE AMINO TRANSFERASE 74 IU/L (15-46); BLOOD UREA NITROGEN 105 mg/dl (7-20); CALCIUM 9.5 mg/dl (8.4-10.2); CARBON DIOXIDE 27 mmol/L (21-31); CHLORIDE 96 mmol/L (97-110); GLUCOSE 123 mg/dl (70-220); SODIUM 135 mmol/L (135-144); TOTAL PROTEIN 6.9 g/dl (6.1-8.1)
[2017-12-03 06:09] LABS: CREATININE 6.22 mg/dl (0.61-1.24)
[2017-12-03] MEDS: METOPROLOL 25 MG TAB NGT ×2 (08:22→21:43)
[2017-12-03] MEDS: SEVELAMER CARBONATE 0.8 GM PKT NGT ×3 (09:05→21:43)
[2017-12-03] MEDS: LORAZEPAM 2 MG INJ IV (13:30)
[2017-12-03] MEDS: HEPARIN 1000 UNITS/ML 10 ML INJ CATHETER (13:49)
[2017-12-03] MEDS: ACETAMINOPHEN 650MG/20.3ML CUP PO (21:43)
[2017-12-04] MEDS: LANSOPRAZOLE 30 MG CAP NGT ×2 (05:37→18:37)
[2017-12-04 05:51] LABS: ADD MAN DIFF? NO
[2017-12-04 06:06] LABS: WHITE BLOOD COUNT 9.4 10^3/ul (4.8-10.8)
[2017-12-04 06:06] LABS: ABNORMAL IP MESSAGE 1; BASOPHIL # 0.1 10^3/ul (0.0-0.1); BASOPHILS % 1.1 % (0.0-2.0); EOSINOPHILS # 1.3 10^3/ul (0.0-0.5); HEMATOCRIT 24.9 % (42.0-52.0); HEMOGLOBIN 7.7 g/dl (14.0-18.0); LYMPHOCYTES # 0.6 10^3/ul (0.8-2.9); MEAN CORPUSCULAR HEMOGLOBIN 26.8 pg (29.0-33.0); MEAN CORPUSCULAR HGB CONC 30.9 g/dl (32.0-37.0); MEAN CORPUSCULAR VOLUME 86.8 fl (82.0-101.0); MEAN PLATELET VOLUME 10.8 fl (7.4-10.4); MONOCYTE # 1.1 10^3/ul (0.3-0.9); NEUTROPHIL # 6.2 10^3/ul (1.6-7.5); NEUTROPHILS % 66.3 % (39.0-77.0); PLATELET COUNT 338 10^3/UL (140-415); POSITIVE DIFF @See below; RED BLOOD COUNT 2.87 10^6/ul (4.70-6.10); RED CELL DISTRIBUTION WIDTH 21.7 % (11.5-14.5)
[2017-12-04 06:51] LABS: ANION GAP 18 (8-16); BLOOD UREA NITROGEN 86 mg/dl (7-20); CALCIUM 8.8 mg/dl (8.4-10.2); CARBON DIOXIDE 27 mmol/L (21-31); CHLORIDE 97 mmol/L (97-110); CREATININE 5.66 mg/dl (0.61-1.24); GLUCOSE 113 mg/dl (70-220); MAGNESIUM 2.7 mg/dl (1.7-2.5); PHOSPHORUS 5.4 mg/dl (2.5-4.9); SODIUM 138 mmol/L (135-144)
[2017-12-04] MEDS: SEVELAMER CARBONATE 0.8 GM PKT NGT ×3 (08:24→21:47)
[2017-12-04] MEDS: METOPROLOL 25 MG TAB NGT ×2 (08:24→21:48)
[2017-12-04 10:30] LABS: AADO2 Arterial 245.6 mmHg (7.0-24.0); Allen Test ACCEPTAB; Arterial Base Excess 1.4 mmol/L (-3.0-3); Arterial Blood Gas Oxygen Sat 85.1 mmHG (95.0-100.0); Arterial COHb 0 % (0.0-3.0); Arterial Fraction of Oxyhgb 84.8 % (93.0-99.0); Arterial HCO3 27.6 mmol/L (22.0-26.0); Arterial MetHb 0.4 % (0.0-1.5); Arterial Total Hemglobin 8.9 g/dl (12.0-18.0); Arterial pCO2 52.5 mmhg (35-45); MODE VENT - AC; Site Right Radial
[2017-12-04 11:27] LABS: ADD UMIC YES; UR ASCORBIC ACID NEGATIVE (NEGATIVE); UR BACTERIA FEW /HPF (NONE SEEN); UR BILIRUBIN (Dip) NEGATIVE (NEGATIVE); UR BLOOD (Dip) 2+ mg/dL (NEGATIVE); UR BUDDING YEAST MANY /HPF (NONE SEEN); UR CLARITY TURBID (CLEAR); UR COLOR AMBER (YELLOW); UR GLUCOSE (Dip) NEGATIVE (NEGATIVE); UR KETONES (Dip) NEGATIVE (NEGATIVE); UR LEUKOCYTE ESTERASE (Dip) 2+ Leu/ul (NEGATIVE); UR NITRITE (Dip) NEGATIVE (NEGATIVE); UR NONSQUAMOUS EPITHELIAL CELL 3 /HPF (NONE SEEN); UR RBC > 182 /HPF (0-5); UR TOTAL PROTEIN (Dip) 2+ mg/dl (NEGATIVE); UR UROBILINOGEN (Dip) NEGATIVE (NEGATIVE); UR WBC > 182 /HPF (0-5)
[2017-12-04] MEDS: CEFTRIAXONE 1 GM/50 ML (PMX) 50 ML IVPB (11:55)
[2017-12-04] MEDS: SENNA/DOCUSATE NA (8.6MG/50MG) TAB PO ×2 (11:56→21:48)
[2017-12-04] MEDS: LORAZEPAM 2 MG INJ IV (13:38)
[2017-12-04] MEDS: morphine 2 MG INJ IV (15:42)
[2017-12-04] MEDS: EPOETIN 10000 UNITS/ML (NON ESRD/NON ONCOLOGY) SC ×2 (20:00→23:08)
[2017-12-04] MEDS ORDERED: ALBUMIN HUMAN 25% 100 ML (21:22)
[2017-12-04] MEDS: ACETAMINOPHEN 650MG/20.3ML CUP PO (21:47)
[2017-12-04 22:58] LABS: HAAIG REFLEX REFLEX FILED
[2017-12-04 23:37] LABS: HEPATITIS B SURFACE ANTIGEN NEGATIVE (NEGATIVE)
[2017-12-04 23:55] LABS: HEPATITIS B CORE ANTIBODY NEGATIVE (NEGATIVE); HEPATITIS C VIRAL ANTIBODY NEGATIVE (NEGATIVE)
[2017-12-05] MEDS ORDERED: NORepinephrine 8MG/250 ML (PMX 250 ML (00:10)
[2017-12-05] MEDS: LANSOPRAZOLE 30 MG CAP NGT ×2 (05:19→17:44)
[2017-12-05 05:43] LABS: ADD MAN DIFF? NO
[2017-12-05 05:50] LABS: ABNORMAL IP MESSAGE 1; BASOPHIL # 0.1 10^3/ul (0.0-0.1); BASOPHILS % 0.9 % (0.0-2.0); EOSINOPHILS # 0.7 10^3/ul (0.0-0.5); EOSINOPHILS % 8.9 % (0.0-7.0); HEMATOCRIT 23.5 % (42.0-52.0); LYMPHOCYTES # 0.5 10^3/ul (0.8-2.9); LYMPHOCYTES % 7.2 % (15.0-51.0); MEAN CORPUSCULAR HEMOGLOBIN 26.1 pg (29.0-33.0); MEAN CORPUSCULAR HGB CONC 29.8 g/dl (32.0-37.0); MEAN CORPUSCULAR VOLUME 87.7 fl (82.0-101.0); MEAN PLATELET VOLUME 10.9 fl (7.4-10.4); MONOCYTE # 0.9 10^3/ul (0.3-0.9); MONOCYTES % 12.3 % (0.0-11.0); NEUTROPHIL # 5.2 10^3/ul (1.6-7.5); NEUTROPHILS % 69.9 % (39.0-77.0); NUCLEATED RED BLOOD CELLS% 0.3 /100WBC (0.0-0.0); PLATELET COUNT 284 10^3/UL (140-415); POSITIVE DIFF @See below; RED BLOOD COUNT 2.68 10^6/ul (4.70-6.10); RED CELL DISTRIBUTION WIDTH 20.9 % (11.5-14.5)
[2017-12-05 05:50] LABS: WHITE BLOOD COUNT 7.4 10^3/ul (4.8-10.8)
[2017-12-05 06:29] LABS: ANION GAP 17 (8-16); BLOOD UREA NITROGEN 69 mg/dl (7-20); CALCIUM 9.3 mg/dl (8.4-10.2); CARBON DIOXIDE 29 mmol/L (21-31); CHLORIDE 96 mmol/L (97-110); CREATININE 5.23 mg/dl (0.61-1.24); GLUCOSE 107 mg/dl (70-220); MAGNESIUM 2.5 mg/dl (1.7-2.5); PHOSPHORUS 4.6 mg/dl (2.5-4.9); POTASSIUM 3.9 mmol/L (3.5-5.1); SODIUM 138 mmol/L (135-144)
[2017-12-05] MEDS: SENNA/DOCUSATE NA (8.6MG/50MG) TAB PO ×2 (08:48→20:31)
[2017-12-05] MEDS: METOPROLOL 25 MG TAB NGT ×2 (08:48→20:32)
[2017-12-05] MEDS: SEVELAMER CARBONATE 0.8 GM PKT NGT ×3 (08:49→20:31)
[2017-12-05] MEDS: LORAZEPAM 2 MG INJ IV ×2 (10:49→21:18)
[2017-12-05] MEDS: CEFTRIAXONE 1 GM/50 ML (PMX) 50 ML IVPB (10:49)
[2017-12-05] MEDS: morphine 2 MG INJ IV (11:19)
[2017-12-05] MEDS: ACETAMINOPHEN 650MG/20.3ML CUP PO (16:33)
[2017-12-06] MEDS: LORAZEPAM 2 MG INJ IV ×2 (05:01→15:33)
[2017-12-06] MEDS: LANSOPRAZOLE 30 MG CAP NGT ×2 (05:01→17:12)
[2017-12-06] MEDS: ACETAMINOPHEN 650MG/20.3ML CUP PO ×3 (05:01→17:17)
[2017-12-06 05:33] LABS: ADD MAN DIFF? NO
[2017-12-06 05:37] LABS: WHITE BLOOD COUNT 8.4 10^3/ul (4.8-10.8)
[2017-12-06 05:37] LABS: BASOPHIL # 0.1 10^3/ul (0.0-0.1); BASOPHILS % 0.8 % (0.0-2.0); EOSINOPHILS # 1.1 10^3/ul (0.0-0.5); EOSINOPHILS % 12.6 % (0.0-7.0); HEMATOCRIT 23.5 % (42.0-52.0); LYMPHOCYTES # 0.6 10^3/ul (0.8-2.9); LYMPHOCYTES % 7.6 % (15.0-51.0); MEAN CORPUSCULAR HEMOGLOBIN 26.1 pg (29.0-33.0); MEAN CORPUSCULAR HGB CONC 29.8 g/dl (32.0-37.0); MEAN CORPUSCULAR VOLUME 87.7 fl (82.0-101.0); MEAN PLATELET VOLUME 10.9 fl (7.4-10.4); MONOCYTE # 0.9 10^3/ul (0.3-0.9); MONOCYTES % 10.9 % (0.0-11.0); NEUTROPHIL # 5.7 10^3/ul (1.6-7.5); NUCLEATED RED BLOOD CELLS # 0.1 10^3/ul (0.0-0.0); NUCLEATED RED BLOOD CELLS% 1.1 /100WBC (0.0-0.0); PLATELET COUNT 334 10^3/UL (140-415); RED BLOOD COUNT 2.68 10^6/ul (4.70-6.10); RED CELL DISTRIBUTION WIDTH 21.5 % (11.5-14.5)
[2017-12-06 06:03] LABS: ANION GAP 20 (8-16); BLOOD UREA NITROGEN 95 mg/dl (7-20); CALCIUM 8.9 mg/dl (8.4-10.2); CARBON DIOXIDE 26 mmol/L (21-31); CHLORIDE 97 mmol/L (97-110); CREATININE 6.64 mg/dl (0.61-1.24); GLUCOSE 120 mg/dl (70-220); POTASSIUM 4.5 mmol/L (3.5-5.1); SODIUM 138 mmol/L (135-144)
[2017-12-06] MEDS: SEVELAMER CARBONATE 0.8 GM PKT NGT ×3 (08:07→21:11)
[2017-12-06] MEDS: SENNA/DOCUSATE NA (8.6MG/50MG) TAB PO ×2 (08:07→21:11)
[2017-12-06] MEDS: METOPROLOL 25 MG TAB NGT ×2 (08:08→21:00)
[2017-12-06] MEDS: CEFTRIAXONE 1 GM/50 ML (PMX) 50 ML IVPB (13:04)
[2017-12-06] MEDS: HEPARIN 1000 UNITS/ML 10 ML INJ CATHETER (14:22)
[2017-12-06] MEDS: SOD CHLORIDE 0.9% 250 ML IV ×2 (14:34→16:23)
[2017-12-06 15:40] LABS: LACTIC ACID 1.5 mmol/L (0.5-2.0)
[2017-12-06] MEDS ORDERED: NORepinephrine 8MG/250 ML (PMX 250 ML (16:07)
[2017-12-06] MEDS ORDERED: PIPER-TAZO 3.375 GM IV (PMX) 100 ML IVPB (16:30)
[2017-12-06] MEDS ORDERED: VANCOMYCIN IV PER PHARMACY XX (16:30)
[2017-12-06] MEDS: NORepinephrine 8MG/250 ML (PMX 250 ML IV (16:54)
[2017-12-06] MEDS: EPOETIN 10000 UNITS/ML (NON ESRD/NON ONCOLOGY) SC (17:11)
[2017-12-06] MEDS: PIPER-TAZO 2.25 GM (PMX) 50 ML IVPB (17:17)
[2017-12-06] MEDS: VANCOMYCIN 2 GM in SOD CHLORIDE 0.9% 500 ML IVPB (17:40)
[2017-12-07 05:31] LABS: ADD MAN DIFF? NO
[2017-12-07 05:41] LABS: BASOPHIL # 0.1 10^3/ul (0.0-0.1); BASOPHILS % 0.4 % (0.0-2.0); EOSINOPHILS # 0.8 10^3/ul (0.0-0.5); EOSINOPHILS % 5.6 % (0.0-7.0); HEMATOCRIT 23.7 % (42.0-52.0); HEMOGLOBIN 7.1 g/dl (14.0-18.0); LYMPHOCYTES # 0.8 10^3/ul (0.8-2.9); LYMPHOCYTES % 5.7 % (15.0-51.0); MEAN CORPUSCULAR HEMOGLOBIN 26.6 pg (29.0-33.0); MEAN CORPUSCULAR VOLUME 88.8 fl (82.0-101.0); MEAN PLATELET VOLUME 10.9 fl (7.4-10.4); MONOCYTES % 7.2 % (0.0-11.0); NEUTROPHIL # 11.1 10^3/ul (1.6-7.5); NEUTROPHILS % 80.2 % (39.0-77.0); NUCLEATED RED BLOOD CELLS # 0.1 10^3/ul (0.0-0.0); NUCLEATED RED BLOOD CELLS% 0.8 /100WBC (0.0-0.0); PLATELET COUNT 297 10^3/UL (140-415); RED BLOOD COUNT 2.67 10^6/ul (4.70-6.10); RED CELL DISTRIBUTION WIDTH 21.7 % (11.5-14.5)
[2017-12-07 05:41] LABS: WHITE BLOOD COUNT 13.8 10^3/ul (4.8-10.8)
[2017-12-07 05:51] LABS: LACTIC ACID 1.2 mmol/L (0.5-2.0)
[2017-12-07] MEDS: PIPER-TAZO 2.25 GM (PMX) 50 ML IVPB ×2 (06:02→13:37)
[2017-12-07] MEDS: LANSOPRAZOLE 30 MG CAP NGT ×2 (06:02→17:54)
[2017-12-07] MEDS: LORAZEPAM 2 MG INJ IV ×2 (06:33→17:43)
[2017-12-07 06:43] LABS: ANION GAP 21 (8-16); BLOOD UREA NITROGEN 83 mg/dl (7-20); CALCIUM 8.4 mg/dl (8.4-10.2); CARBON DIOXIDE 25 mmol/L (21-31); CHLORIDE 98 mmol/L (97-110); CREATININE 5.78 mg/dl (0.61-1.24); GLUCOSE 133 mg/dl (70-220); POTASSIUM 4.5 mmol/L (3.5-5.1); SODIUM 139 mmol/L (135-144)
[2017-12-07] MEDS: METOPROLOL 25 MG TAB NGT ×2 (08:45→20:23)
[2017-12-07] MEDS: SEVELAMER CARBONATE 0.8 GM PKT NGT ×3 (09:16→20:26)
[2017-12-07] MEDS: SENNA/DOCUSATE NA (8.6MG/50MG) TAB PO ×2 (09:16→20:26)
[2017-12-07] MEDS: ACETAMINOPHEN 650MG/20.3ML CUP PO ×2 (11:13→16:24)
[2017-12-07 22:53] LABS: AADO2 Arterial 424.6 mmHg (7.0-24.0); Allen Test ACCEPTAB; Arterial Base Excess -3.2 mmol/L (-3.0-3); Arterial Blood Gas Oxygen Sat 96.4 mmHG (95.0-100.0); Arterial COHb 0.5 % (0.0-3.0); Arterial Fraction of Oxyhgb 95.4 % (93.0-99.0); Arterial HCO3 23.6 mmol/L (22.0-26.0); Arterial MetHb 0.5 % (0.0-1.5); Arterial Total Hemglobin 7.3 g/dl (12.0-18.0); Arterial pCO2 52.6 mmhg (35-45); Blood Gas Mean Airway Pressure 12; MODE VENT - AC; Site Right Radial
[2017-12-08] MEDS: LANSOPRAZOLE 30 MG CAP NGT ×2 (05:32→18:27)
[2017-12-08 05:38] LABS: ADD MAN DIFF? NO
[2017-12-08 05:57] LABS: WHITE BLOOD COUNT 10.3 10^3/ul (4.8-10.8)
[2017-12-08 05:57] LABS: ABNORMAL IP MESSAGE 1; HEMATOCRIT 21.9 % (42.0-52.0); MEAN CORPUSCULAR HEMOGLOBIN 26.5 pg (29.0-33.0); MEAN CORPUSCULAR HGB CONC 30.1 g/dl (32.0-37.0); NUCLEATED RED BLOOD CELLS% 1.8 /100WBC (0.0-0.0); PLATELET COUNT 312 10^3/UL (140-415); POSITIVE DIFF @See below; RED BLOOD COUNT 2.49 10^6/ul (4.70-6.10); RED CELL DISTRIBUTION WIDTH 22.3 % (11.5-14.5)
[2017-12-08 06:08] LABS: ANION GAP 20 (8-16); BLOOD UREA NITROGEN 107 mg/dl (7-20); CALCIUM 9.1 mg/dl (8.4-10.2); CARBON DIOXIDE 25 mmol/L (21-31); CHLORIDE 96 mmol/L (97-110); CREATININE 7.27 mg/dl (0.61-1.24); GLUCOSE 110 mg/dl (70-220); POTASSIUM 4.8 mmol/L (3.5-5.1); SODIUM 136 mmol/L (135-144)
[2017-12-08 06:17] LABS: HEMOGLOBIN 6.6 g/dl (14.0-18.0)
[2017-12-08 07:33] LABS: IMMEDIATE SPIN CROSSMATCH 1 2
[2017-12-08] MEDS: METOPROLOL 25 MG TAB NGT ×2 (09:00→21:00)
[2017-12-08] MEDS: SENNA/DOCUSATE NA (8.6MG/50MG) TAB PO ×2 (09:26→22:00)
[2017-12-08] MEDS: SEVELAMER CARBONATE 0.8 GM PKT NGT ×3 (09:26→22:00)
[2017-12-08] MEDS: LORAZEPAM 2 MG INJ IV ×2 (10:45→16:51)
[2017-12-08 11:05] LABS: IMMEDIATE SPIN CROSSMATCH 1 1
[2017-12-08] MEDS ORDERED: ALBUMIN HUMAN 25% 100 ML (17:32)
[2017-12-08] MEDS: ALBUMIN HUMAN 25% 100 ML IV (17:37)
[2017-12-08] MEDS: EPOETIN 10000 UNITS/ML (NON ESRD/NON ONCOLOGY) SC (18:27)
[2017-12-08] MEDS: ALTEPLASE (CATHFLO) 2 MG INJ CATHETER ×3 (19:37→19:39)
[2017-12-09 04:52] LABS: ADD MAN DIFF? NO
[2017-12-09 05:11] LABS: ABNORMAL IP MESSAGE 1; BASOPHILS % 0.3 % (0.0-2.0); EOSINOPHILS # 1.2 10^3/ul (0.0-0.5); EOSINOPHILS % 10.9 % (0.0-7.0); HEMATOCRIT 24.2 % (42.0-52.0); HEMOGLOBIN 7.6 g/dl (14.0-18.0); LYMPHOCYTES # 0.6 10^3/ul (0.8-2.9); LYMPHOCYTES % 5.4 % (15.0-51.0); MEAN CORPUSCULAR HEMOGLOBIN 27.5 pg (29.0-33.0); MEAN CORPUSCULAR HGB CONC 31.4 g/dl (32.0-37.0); MEAN CORPUSCULAR VOLUME 87.7 fl (82.0-101.0); MEAN PLATELET VOLUME 11.9 fl (7.4-10.4); MONOCYTE # 0.7 10^3/ul (0.3-0.9); MONOCYTES % 6.9 % (0.0-11.0); NEUTROPHIL # 8.1 10^3/ul (1.6-7.5); NEUTROPHILS % 75.9 % (39.0-77.0); NUCLEATED RED BLOOD CELLS # 0.2 10^3/ul (0.0-0.0); NUCLEATED RED BLOOD CELLS% 1.7 /100WBC (0.0-0.0); PLATELET COUNT 228 10^3/UL (140-415); POSITIVE DIFF @See below; RED BLOOD COUNT 2.76 10^6/ul (4.70-6.10); RED CELL DISTRIBUTION WIDTH 19.9 % (11.5-14.5)
[2017-12-09 05:11] LABS: WHITE BLOOD COUNT 10.7 10^3/ul (4.8-10.8)
[2017-12-09 05:26] LABS: ANION GAP 20 (8-16); BLOOD UREA NITROGEN 90 mg/dl (7-20); CALCIUM 8.9 mg/dl (8.4-10.2); CARBON DIOXIDE 25 mmol/L (21-31); CHLORIDE 95 mmol/L (97-110); CREATININE 6.03 mg/dl (0.61-1.24); GLUCOSE 114 mg/dl (70-220); POTASSIUM 4.5 mmol/L (3.5-5.1); SODIUM 135 mmol/L (135-144)
[2017-12-09] MEDS: LANSOPRAZOLE 30 MG CAP NGT ×2 (05:33→18:24)
[2017-12-09 07:18] LABS: LACTIC ACID 1.5 mmol/L (0.5-2.0)
[2017-12-09] MEDS: SEVELAMER CARBONATE 0.8 GM PKT NGT ×3 (08:53→21:03)
[2017-12-09] MEDS: METOPROLOL 25 MG TAB NGT ×2 (08:54→21:00)
[2017-12-09] MEDS: SENNA/DOCUSATE NA (8.6MG/50MG) TAB PO ×2 (08:54→21:03)
[2017-12-09] MEDS: ACETAMINOPHEN 650MG/20.3ML CUP PO ×2 (09:01→19:02)
[2017-12-09] MEDS: LORAZEPAM 2 MG INJ IV ×2 (09:08→13:21)
[2017-12-09 11:31] LABS: Allen Test ACCEPTAB; Site Left Radial
[2017-12-10] MEDS: ACETAMINOPHEN 650MG/20.3ML CUP PO ×3 (03:38→23:40)
[2017-12-10] MEDS: LORAZEPAM 2 MG INJ IV ×3 (03:38→23:49)
[2017-12-10] MEDS: LANSOPRAZOLE 30 MG CAP NGT ×2 (05:42→18:01)
[2017-12-10 06:08] LABS: WHITE BLOOD COUNT 21.1 10^3/ul (4.8-10.8)
[2017-12-10 06:08] LABS: HEMATOCRIT 26.4 % (42.0-52.0); HEMOGLOBIN 8.1 g/dl (14.0-18.0); MEAN CORPUSCULAR HEMOGLOBIN 26.9 pg (29.0-33.0); MEAN CORPUSCULAR HGB CONC 30.7 g/dl (32.0-37.0); MEAN CORPUSCULAR VOLUME 87.7 fl (82.0-101.0); MEAN PLATELET VOLUME 11.2 fl (7.4-10.4); NUCLEATED RED BLOOD CELLS% 1.1 /100WBC (0.0-0.0); PLATELET COUNT 268 10^3/UL (140-415); POSITIVE DIFF @See below; RED BLOOD COUNT 3.01 10^6/ul (4.70-6.10); RED CELL DISTRIBUTION WIDTH 20.6 % (11.5-14.5)
[2017-12-10 06:30] LABS: ADD MAN DIFF? YES
[2017-12-10 06:38] LABS: ANION GAP 19 (8-16); BLOOD UREA NITROGEN 107 mg/dl (7-20); CALCIUM 9.6 mg/dl (8.4-10.2); CARBON DIOXIDE 26 mmol/L (21-31); CHLORIDE 92 mmol/L (97-110); GLUCOSE 109 mg/dl (70-220); PHOSPHORUS 5.4 mg/dl (2.5-4.9); POTASSIUM 5.1 mmol/L (3.5-5.1); SODIUM 132 mmol/L (135-144)
[2017-12-10 06:49] LABS: CREATININE 7.39 mg/dl (0.61-1.24)
[2017-12-10 07:02] LABS: AADO2 Arterial 378.5 mmHg (7.0-24.0); Arterial Base Excess -4.7 mmol/L (-3.0-3); Arterial Blood Gas Oxygen Sat 88.1 mmHG (95.0-100.0); Arterial COHb 0.1 % (0.0-3.0); Arterial Fraction of Oxyhgb 87.7 % (93.0-99.0); Arterial HCO3 23.3 mmol/L (22.0-26.0); Arterial MetHb 0.3 % (0.0-1.5); Arterial Total Hemglobin 10.1 g/dl (12.0-18.0); Arterial pCO2 58.2 mmhg (35-45); MODE VENT - AC
[2017-12-10] MEDS: METOPROLOL 25 MG TAB NGT ×2 (09:00→21:00)
[2017-12-10] MEDS: SEVELAMER CARBONATE 0.8 GM PKT NGT ×3 (09:23→22:12)
[2017-12-10] MEDS: SENNA/DOCUSATE NA (8.6MG/50MG) TAB PO ×2 (09:23→22:12)
[2017-12-10] MEDS ORDERED: VANCOMYCIN IV PER PHARMACY XX (09:30)
[2017-12-10] MEDS ORDERED: NORepinephrine 8MG/250 ML (PMX 250 ML (09:36)
[2017-12-10] MEDS: NORepinephrine 8MG/250 ML (PMX 250 ML IV (09:45)
[2017-12-10 10:52] LABS: ANISOCYTOSIS 2+ (0-0); BAND NEUTROPHILS #M 4.4 10^3/ul (0.0-0.6); BAND NEUTROPHILS % (M) 21 % (0-4); BASOPHIL #M 0.2 10^3/ul (0.0-0.0); BASOPHILS % (M) 1 % (0-2); EOSINOPHILS % (M) 9 % (0-7); ERYTHROBLAST% (NRBC) (M) 2 % (0-0); HYPOCHROMASIA 1+ (0-0); LYMPHOCYTES #M 0.8 10^3/ul (0.8-2.9); LYMPHOCYTES % (M) 4 % (15-51); MICROCYTOSIS 1+ (0-0); MONOCYTE #M 1.4 10^3/ul (0.3-0.9); MONOCYTES % (M) 7 % (0-11); PLASMA CELLS #M 1.4 10^3/ul (0.0-0.0); PLASMAC%(M) 7 % (0); PLATELET ESTIMATE NORMAL; POLYCHROMASIA 3+ (0-0); SEG NEUT #M 11.7 10^3/ul (1.7-7.5); SEGMENTED NEUTROPHILS (M) % 51 % (39-77); SMUDGE%M 19 % (0-0)
[2017-12-10] MEDS: PIPER-TAZO 2.25 GM (PMX) 50 ML IVPB ×3 (11:34→22:13)
[2017-12-10 12:58] LABS: LACTIC ACID 1.3 mmol/L (0.5-2.0)
[2017-12-10] MEDS: VANCOMYCIN 750 MG in DEXTROSE 5% 150 ML IVPB (20:22)
[2017-12-11 00:30] LABS: AADO2 Arterial 591.4 mmHg (7.0-24.0); Allen Test ACCEPTAB; Arterial Base Excess -6.4 mmol/L (-3.0-3); Arterial COHb 0.1 % (0.0-3.0); Arterial Fraction of Oxyhgb 81.6 % (93.0-99.0); Arterial HCO3 23.1 mmol/L (22.0-26.0); Arterial MetHb 0.4 % (0.0-1.5); Arterial Total Hemglobin 9.9 g/dl (12.0-18.0); Arterial pCO2 69.3 mmhg (35-45); MODE VENT - AC; Site Right Radial
[2017-12-11] MEDS ORDERED: ACETAMINOPHEN 1000MG/100ML IV 100 ML (04:57)
[2017-12-11] MEDS ORDERED: ACETAMINOPHEN 1000MG/100ML IV 100 ML IVPB (05:00)
[2017-12-11] MEDS: ACETAMINOPHEN 1000MG/100ML IV 100 ML IVPB ×2 (05:07→22:52)
[2017-12-11] MEDS: LANSOPRAZOLE 30 MG CAP NGT ×2 (06:00→17:16)
[2017-12-11] MEDS ORDERED: PHENYLephrine 20MG IN 250 ML 250 ML (07:04)
[2017-12-11] MEDS: PIPER-TAZO 2.25 GM (PMX) 50 ML IVPB ×2 (07:29→14:09)
[2017-12-11] MEDS: PHENYLephrine 20MG IN 250 ML 250 ML IV ×3 (07:41→15:02)
[2017-12-11] MEDS: ALBUMIN HUMAN 25% 100 ML IV (07:43)
[2017-12-11] MEDS: METOPROLOL 25 MG TAB NGT ×2 (08:17→21:00)
[2017-12-11] MEDS: HEPARIN 1000 UNITS/ML 10 ML INJ CATHETER (09:00)
[2017-12-11] MEDS: SENNA/DOCUSATE NA (8.6MG/50MG) TAB PO ×2 (09:28→21:10)
[2017-12-11] MEDS: SEVELAMER CARBONATE 0.8 GM PKT NGT ×3 (09:28→21:10)
[2017-12-11] MEDS ORDERED: ACETYLCYSTEINE 20% 4 ML VIAL (10:05)
[2017-12-11 10:19] LABS: ABNORMAL IP MESSAGE 1; HEMATOCRIT 29.5 % (42.0-52.0); MEAN CORPUSCULAR HEMOGLOBIN 26.8 pg (29.0-33.0); MEAN CORPUSCULAR HGB CONC 30.5 g/dl (32.0-37.0); MEAN CORPUSCULAR VOLUME 87.8 fl (82.0-101.0); MEAN PLATELET VOLUME 11.7 fl (7.4-10.4); NUCLEATED RED BLOOD CELLS% 19.1 /100WBC (0.0-0.0); PLATELET COUNT 458 10^3/UL (140-415); POSITIVE DIFF @See below; RED BLOOD COUNT 3.36 10^6/ul (4.70-6.10); RED CELL DISTRIBUTION WIDTH 21.8 % (11.5-14.5)
[2017-12-11 10:19] LABS: WHITE BLOOD COUNT 18.3 10^3/ul (4.8-10.8)
[2017-12-11 10:24] LABS: ADD MAN DIFF? YES
[2017-12-11] MEDS: LEVALBUTEROL (HFA) 15 GM INHALER INH ×3 (10:35→20:26)
[2017-12-11] MEDS: ACETYLCYSTEINE 20% 4 ML VIAL NEB ×3 (10:36→20:27)
[2017-12-11 10:41] LABS: ALANINE AMINOTRANSFERASE 49 IU/L (13-69); ALBUMIN 3.2 g/dl (3.3-4.9); ALBUMIN/GLOBULIN RATIO 0.91; ALKALINE PHOSPHATASE 144 IU/L (42-121); ANION GAP 24 (8-16); ASPARTATE AMINO TRANSFERASE 57 IU/L (15-46); BILIRUBIN,TOTAL 0.3 mg/dl (0.2-1.3); BLOOD UREA NITROGEN 75 mg/dl (7-20); CALCIUM 9.3 mg/dl (8.4-10.2); CARBON DIOXIDE 21 mmol/L (21-31); CHLORIDE 94 mmol/L (97-110); GLUCOSE 96 mg/dl (70-220); POTASSIUM 4.5 mmol/L (3.5-5.1); SODIUM 134 mmol/L (135-144); TOTAL PROTEIN 6.7 g/dl (6.1-8.1)
[2017-12-11 10:51] LABS: CREATININE 5.35 mg/dl (0.61-1.24)
[2017-12-11] MEDS: PHENYLephrine 40 MG in DEXTROSE 5% 496 ML IV ×2 (10:57→20:52)
[2017-12-11 13:52] LABS: ANISOCYTOSIS 2+ (0-0); BAND NEUTROPHILS #M 6.2 10^3/ul (0.0-0.6); BAND NEUTROPHILS % (M) 34 % (0-4); BASOPHIL #M 0.1 10^3/ul (0.0-0.0); BASOPHILS % (M) 1 % (0-2); BURR CELLS 3+ (0-0); EOSINOPHILS % (M) 2 % (0-7); ERYTHROBLAST% (NRBC) (M) 25 % (0-0); GIANT THROMBO% (M) 15 % (0-0); LYMPHOCYTES #M 0.9 10^3/ul (0.8-2.9); LYMPHOCYTES % (M) 5 % (15-51); METAMYELOCYTES #M 0.9 10^3/ul (0.0-0.0); METAMYELOCYTES %M 5 % (0-0); MONOCYTE #M 2.1 10^3/ul (0.3-0.9); MONOCYTES % (M) 12 % (0-11); MYELOCYTES #M 0.5 10^3/ul (0.0-0.0); MYELOCYTES % (M) 3 % (0-0); PLATELET ESTIMATE NORMAL; POIKILOCYTOSIS 2+ (0-0); POLYCHROMASIA 2+ (0-0); SEG NEUT #M 8.1 10^3/ul (1.7-7.5); SEGMENTED NEUTROPHILS (M) % 38 % (39-77); SMUDGE%M 2 % (0-0)
[2017-12-11] MEDS: LEVOFLOXACIN 750MG/D5W (PMX) 150 ML IVPB (14:47)
[2017-12-11] MEDS: morphine 2 MG INJ IV ×2 (14:47→20:11)
[2017-12-11] MEDS ORDERED: AMIKACIN IV PER PHARMACY XX (15:30)
[2017-12-11] MEDS: EPOETIN 10000 UNITS/ML (NON ESRD/NON ONCOLOGY) SC (17:17)
[2017-12-11] MEDS: AMIKACIN IVPB (17:27)
[2017-12-11] MEDS: DEXTROSE 5% IVPB (17:27)
[2017-12-12] MEDS: LEVALBUTEROL (HFA) 15 GM INHALER INH ×2 (01:07→07:59)
[2017-12-12] MEDS: ACETYLCYSTEINE 20% 4 ML VIAL NEB ×2 (01:08→07:59)
[2017-12-12] MEDS: LORAZEPAM 2 MG INJ IV (03:56)
[2017-12-12] MEDS: PHENYLephrine 40 MG in DEXTROSE 5% 496 ML IV (04:00)
[2017-12-12 05:18] LABS: ADD MAN DIFF? NO
[2017-12-12 05:23] LABS: ABNORMAL IP MESSAGE 1; BASOPHIL # 0.1 10^3/ul (0.0-0.1); BASOPHILS % 0.4 % (0.0-2.0); EOSINOPHILS # 0.1 10^3/ul (0.0-0.5); EOSINOPHILS % 0.5 % (0.0-7.0); HEMOGLOBIN 8.3 g/dl (14.0-18.0); LYMPHOCYTES # 0.5 10^3/ul (0.8-2.9); LYMPHOCYTES % 2.6 % (15.0-51.0); MEAN CORPUSCULAR HEMOGLOBIN 26.5 pg (29.0-33.0); MEAN CORPUSCULAR HGB CONC 30.7 g/dl (32.0-37.0); MEAN CORPUSCULAR VOLUME 86.3 fl (82.0-101.0); MEAN PLATELET VOLUME 11.2 fl (7.4-10.4); MONOCYTE # 2.5 10^3/ul (0.3-0.9); MONOCYTES % 12.4 % (0.0-11.0); NEUTROPHIL # 16.6 10^3/ul (1.6-7.5); NEUTROPHILS % 82.5 % (39.0-77.0); NUCLEATED RED BLOOD CELLS # 1.3 10^3/ul (0.0-0.0); NUCLEATED RED BLOOD CELLS% 6.4 /100WBC (0.0-0.0); PLATELET COUNT 491 10^3/UL (140-415); POSITIVE DIFF @See below; RED BLOOD COUNT 3.13 10^6/ul (4.70-6.10); RED CELL DISTRIBUTION WIDTH 21.9 % (11.5-14.5)
[2017-12-12 05:23] LABS: WHITE BLOOD COUNT 20.1 10^3/ul (4.8-10.8)
[2017-12-12 06:31] LABS: ANION GAP 24 (8-16); BLOOD UREA NITROGEN 93 mg/dl (7-20); CARBON DIOXIDE 21 mmol/L (21-31); CHLORIDE 89 mmol/L (97-110); GLUCOSE 112 mg/dl (70-220); MAGNESIUM 2.3 mg/dl (1.7-2.5); PHOSPHORUS 6.3 mg/dl (2.5-4.9); POTASSIUM 5.6 mmol/L (3.5-5.1); SODIUM 128 mmol/L (135-144)
[2017-12-12 06:33] LABS: B-TYPE NATRIURETIC PEPTIDE 11300 PG/ML (0-450)
[2017-12-12 06:47] LABS: CREATININE 5.93 mg/dl (0.61-1.24)
[2017-12-12] MEDS: METOPROLOL 25 MG TAB NGT (09:00)
[2017-12-12] MEDS: LANSOPRAZOLE 30 MG CAP NGT ×4 (09:30→12:32)
[2017-12-12] MEDS: SENNA/DOCUSATE NA (8.6MG/50MG) TAB PO (10:04)
[2017-12-12] MEDS: SEVELAMER CARBONATE 0.8 GM PKT NGT ×2 (10:04→12:32)
[2017-12-12] MEDS: SOD CHLORIDE 0.9% 250 ML IV (13:55)
[2017-12-12] MEDS ORDERED: PHENYLephrine 20MG IN 250 ML 0 ML (13:56)
[2017-12-12] MEDS ORDERED: CASPOFUNGIN 70 MG in SOD CHLORIDE 0.9% 250 ML IVPB (14:00)
[2017-12-12] MEDS ORDERED: AMIKACIN 400 MG in DEXTROSE 5% 100 ML IVPB (16:00)
[2017-12-13] MEDS ORDERED: LEVOFLOXACIN 500MG/D5W (PMX) 100 ML IVPB (13:30)
[2017-12-13] MEDS ORDERED: CASPOFUNGIN 50 MG in SOD CHLORIDE 0.9% 250 ML IVPB (14:00)
== END 2017-12-12 14:10 | disposition expired | DRG 4 ==
LOC: E/R 15:26 → ICU 18:23
PROC: 5A1955Z Respiratory Ventilation, Greater than 96 Consecutive Hours (ICD-10-PCS; principal; 2017-11-23 16:00)
PROC: 0B110F4 Bypass Trachea to Cutaneous with Tracheostomy Device, Open Approach (ICD-10-PCS; 2017-11-23 16:00)
PROC: 0BH17EZ Insertion of Endotracheal Airway into Trachea, Via Natural or Artificial Opening (ICD-10-PCS; 2017-11-23 16:00)
PROC: 0DH63UZ Insertion of Feeding Device into Stomach, Percutaneous Approach (ICD-10-PCS; 2017-11-23 16:00)
PROC: 06HM33Z Insertion of Infusion Device into Right Femoral Vein, Percutaneous Approach (ICD-10-PCS; 2017-11-23 16:00)
PROC: B54BZZA Ultrasonography of Right Lower Extremity Veins, Guidance (ICD-10-PCS; 2017-11-23 16:00)
PROC: 5A1D70Z Performance of Urinary Filtration, Intermittent, Less than 6 Hours Per Day (ICD-10-PCS; 2017-11-23 16:00)
PROC: 02HV33Z Insertion of Infusion Device into Superior Vena Cava, Percutaneous Approach (ICD-10-PCS; 2017-11-23 16:00)
PROC: 30233N1 Transfusion of Nonautologous Red Blood Cells into Peripheral Vein, Percutaneous Approach (ICD-10-PCS; 2017-11-23 16:00)
PROC: 06HN33Z Insertion of Infusion Device into Left Femoral Vein, Percutaneous Approach (ICD-10-PCS; 2017-11-23 16:00)
DX: A41.9 Sepsis, unspecified organism (principal); I21.4 Non-ST elevation (NSTEMI) myocardial infarction; N17.0 Acute kidney failure with tubular necrosis; J18.9 Pneumonia, unspecified organism; I50.33 Acute on chronic diastolic (congestive) heart failure; J96.20 Acute and chronic respiratory failure, unspecified whether with hypoxia or hypercapnia; R65.21 Severe sepsis with septic shock; R57.0 Cardiogenic shock; G93.1 Anoxic brain damage, not elsewhere classified; K70.9 Alcoholic liver disease, unspecified; E87.0 Hyperosmolality and hypernatremia; D64.9 Anemia, unspecified; Z66 Do not resuscitate; K29.70 Gastritis, unspecified, without bleeding; K29.80 Duodenitis without bleeding; I46.9 Cardiac arrest, cause unspecified; J44.9 Chronic obstructive pulmonary disease, unspecified; Z87.891 Personal history of nicotine dependence; R40.2432 Glasgow coma scale score 3-8, at arrival to emergency department
CPT/HCPCS: 36415; 36430; 36569; 36600; 70450; 70551; 71010; 71045; 74176; 76937; 80048; 80053; 80061; 80202; 81001; 82140; 82150; 82550; 82553; 82607; 82728; 82803; 82962; 83036; 83540; 83605; 83690; 83735; 83880; 84100; 84132; 84436; 84443; 84479; 84484; 85014; 85018; 85025; 85378; 85384; 85610; 85730; 86704; 86709; 86803; 86850; 86900; 86901; 86920; 87040; 87070; 87081; 87086; 87340; 89220; 90935; 93005; 93306; 94002; 94003; 94640; 94664; 94770; 95819; 96374; 96375; 99291-25